=== PATIENT | male | born 1965 | race Two or more races ===

== ENCOUNTER 2018-08-10 17:58 | Inpatient (IN) | payer SELFPAY ==
[~2018-08-10] VITALS: Ht 170.2 cm; Wt 88.5 kg
[2018-08-10 19:24] LABS: INR 0.9 (0.9-1.15); Prothrombin Time 9.7 sec (9.27-12.13)
[2018-08-10 19:25] LABS: Basophils # (auto) 0 uL; Basophils % (auto) 0.3 % (0.0-2.0); Eosinophils # (auto) 0 uL; Eosinophils % (auto) 0.1 % (0.0-7.0); Hematocrit 35.2 % (41.0-53.0); Hemoglobin 12.1 g/dL (13.5-17.5); Lymphocytes # (auto) 0.6 uL; Lymphocytes % (auto) 4.5 % (10.0-50.0); Mean Corpuscular Hemoglobin 29.4 pg (28.0-32.0); Mean Corpuscular Hgb Conc. 34.5 g/dL (32.0-36.0); Mean Corpuscular Volume 85.2 fL (80.0-100.0); Monocytes # (auto) 1.3 uL; Neutrophils # (auto) 10.6 uL; Neutrophils % (auto) 85.1 % (37.0-80.0); Nucleated Red Blood Cells % 0.1 %; Platelet Count (auto) 195 10^3/uL (140-450); Red Blood Cells 4.13 10^6/uL (4.5-5.90); White Blood Cell 12.5 10^3/uL (4.4-10.8)
[2018-08-10 19:28] LABS: Albumin 1.7 g/dL (3.4-5.0); Calcium 7.3 mg/dL (8.5-10.1)
[2018-08-10 19:32] LABS: Acetaminophen < 2.0 ug/mL (10-30); Salicylate < 1.7 mg/dL (2.8-20.0)
[2018-08-10 19:57] LABS: BUN/Creatinine Ratio 17.7; Bilirubin, Total 0.4 mg/dL (0.2-1.0); Total Protein 6.4 g/dL (6.4-8.2)
[2018-08-10 20:04] LABS: Potassium 2.9 mmol/L (3.5-5.1)
[2018-08-10] MEDS ORDERED: POTASSIUM CHL 20 Meq TABLET PO ONE (20:15)
[2018-08-10] MEDS: POTASSIUM CHL 20MEQ/100ML 100 ML IV SCH ×2 (20:35→22:55)
[2018-08-11] MEDS ORDERED: LEVOFLOXACIN 500MG 100 ML IV ONE (02:30)
[2018-08-11] MEDS ORDERED: SODIUM CHLORIDE 0.9% 1,000 ML IV ONE (02:30)
[2018-08-11 02:31] LABS: Urine Amorphous Crystal FEW /hpf (None Seen); Urine Bacteria FEW /hpf (None Seen); Urine Blood 2+ /uL (Negative); Urine Hyaline Cast FEW /lpf (0 - 2); Urine WBC 4 /hpf (0 - 3)
[2018-08-11 02:49] LABS: Alcohol, Urine < 3.0 mg/dL (0-5); Amphetamine Screen, Urine NEGATIVE (NEGATIVE); Barbiturate Scree,Urine NEGATIVE (NEGATIVE); Benzodiazephine Screen, Urine NEGATIVE (NEGATIVE); Cannabinoid Screen, Urine NEGATIVE (NEGATIVE); Cocaine Screen, Urine NEGATIVE (NEGATIVE); Opiate Scree,Urine NEGATIVE (NEGATIVE); Phencyclidine Screen, Urine NEGATIVE (NEGATIVE)
[2018-08-11] MEDS ORDERED: SODIUM CHLORIDE 0.9% 1,000 ML IV SCH (02:58)
[2018-08-11] MEDS ORDERED: ONDANSETRON HCL 4 MG/2 ML VIAL IV PRN (03:00)
[2018-08-11] MEDS ORDERED: NITROGLYCERIN 0.4 MG SL TAB SL PRN (03:00)
[2018-08-11] MEDS ORDERED: MORPHINE SULFATE 4 MG/ML SYR/VIAL IV PRN (03:00)
[2018-08-11] MEDS ORDERED: HYDROcodone-ACET 5/325MG TAB PO PRN (03:00)
[2018-08-11] MEDS ORDERED: DEXTROSE (50%) 50ML SYRG IV PRN (04:15)
[2018-08-11] MEDS: SODIUM CHLORIDE 0.9% 1,000 ML IV SCH ×2 (05:01→15:31)
[2018-08-11] MEDS: PANTOPRAZOLE 40 MG TAB PO SCH (06:00)
[2018-08-11] MEDS: InsuLIN REG 1unit/0.01ml Soln (100units/ml) SC SCH ×3 (06:00→18:00)
[2018-08-11] MEDS: CLINDAMYCIN 600MG IV 50 ML IV SCH ×3 (06:01→21:49)
[2018-08-11] MEDS: ACCU-CHEK COMFORT CURVE STRIP VI SCH ×3 (06:02→18:22)
[2018-08-11] MEDS ORDERED: CLOPIDOGREL BISULFATE 75 MG TAB PO ONE (09:45)
[2018-08-11] MEDS ORDERED: ENOXAPARIN SOD 40 MG/0.4 ML SYRINGE SC SCH (10:00)
[2018-08-11] MEDS ORDERED: ATORVASTATIN 20 MG TAB PO ONE (10:15)
[2018-08-11] MEDS: ENOXAPARIN SOD 40 MG/0.4 ML SYRINGE SC SCH (10:30)
[2018-08-11 10:36] LABS: BUN/Creatinine Ratio 19.8; Calcium 7.1 mg/dL (8.5-10.1); Potassium 3.1 mmol/L (3.5-5.1)
[2018-08-11] MEDS ORDERED: hydrALAZINE HCL 20 MG/ML VL IV PRN (15:15)
[2018-08-11] MEDS ORDERED: ATORVASTATIN 20 MG TAB PO SCH (22:00)
[2018-08-11] MEDS: LEVOFLOXACIN 250MG 50 ML IV SCH (22:30)
[2018-08-12] MEDS: ACCU-CHEK COMFORT CURVE STRIP VI SCH ×4 (00:01→18:27)
[2018-08-12] MEDS: SODIUM CHLORIDE 0.9% 1,000 ML IV SCH ×3 (02:30→15:30)
[2018-08-12 05:46] LABS: Basophils # (auto) 0.1 uL; Basophils % (auto) 0.6 % (0.0-2.0); Eosinophils # (auto) 0.1 uL; Hematocrit 33.8 % (41.0-53.0); Hemoglobin 11.5 g/dL (13.5-17.5); Lymphocytes % (auto) 10.8 % (10.0-50.0); Mean Corpuscular Hemoglobin 29.3 pg (28.0-32.0); Mean Corpuscular Hgb Conc. 34.1 g/dL (32.0-36.0); Mean Corpuscular Volume 85.7 fL (80.0-100.0); Monocytes % (auto) 11.5 % (0.0-12.0); Neutrophils # (auto) 6.9 uL; Neutrophils % (auto) 76.1 % (37.0-80.0); Platelet Count (auto) 238 10^3/uL (140-450); Red Blood Cells 3.94 10^6/uL (4.5-5.90); Red Cell Distribution Width 13.3 % (11.8-14.3)
[2018-08-12] MEDS: InsuLIN REG 1unit/0.01ml Soln (100units/ml) SC SCH ×4 (06:00→18:00)
[2018-08-12 06:05] LABS: Albumin 1.4 g/dL (3.4-5.0); BUN/Creatinine Ratio 17.6; Calcium 6.9 mg/dL (8.5-10.1)
[2018-08-12 06:13] LABS: Bilirubin, Total 0.5 mg/dL (0.2-1.0); Total Protein 5.8 g/dL (6.4-8.2)
[2018-08-12 06:29] LABS: Magnesium 2.2 mg/dL (1.6-2.6)
[2018-08-12] MEDS: PANTOPRAZOLE 40 MG TAB PO SCH (06:30)
[2018-08-12] MEDS: CLINDAMYCIN 600MG IV 50 ML IV SCH ×3 (06:30→22:10)
[2018-08-12] MEDS: ASPirin-EC 325mg tab PO SCH (10:59)
[2018-08-12] MEDS: ENOXAPARIN SOD 40 MG/0.4 ML SYRINGE SC SCH (10:59)
[2018-08-12] MEDS ORDERED: POTASSIUM CHL 20 Meq TABLET PO ONE (13:15)
[2018-08-12] MEDS ORDERED: POTASSIUM EFFERVESENT TAB 25 MEQ PO ONE (13:30)
[2018-08-12] MEDS ORDERED: LISINOPRIL 20 MG TAB PO ONE (15:30)
[2018-08-12] MEDS ORDERED: FUROSEMIDE 20 MG/2 ML VIAL IV ONE (15:30)
[2018-08-12] MEDS ORDERED: SODIUM CHLORIDE 0.9% 1,000 ML IV SCH (15:30)
--- NOTE | 2018-08-12 15:52 | NUR ---
SWALLOW EVALUATED IN THE E.D. WITH FAMILY PRESENT. PATIENT ALOC, ABLE TO TOLERATE TRIAL OF PUREE DIET WITH THIN LIQUIDS WITH NO OVERT SIGNS OR SYMPTOMS OF ASPIRATION. PATIENT HAS TEETH. NURSING NOTIFIED.
[2018-08-12 16:00] VITALS: BP 156/96
--- NOTE | 2018-08-12 16:00 | NUR ---
Telemetry admit from ER SANJAY PIERRE admitted to Telemetry unit. Patient oriented to Minoo Gutierrez, primary RN, unit, room, bed, and unit policies regarding patient care and visiting hours. Patient now on continuous telemetry monitoring, tele box #32. Patient placed on bedside oxygen, weighed by bedscale. Safety precautions in place including, bed set to lowest position/locked. Bedside rails up X2. Bed alarm on, call light within reach. All questions and concerns addressed with family. Will continue to monitor Q 1hr and PRN.
--- NOTE | 2018-08-12 16:07 | NUR ---
Patient transport to floor on tele monitor on oliver fuentes, no s/s of distress noted at time of transport. Family at bedside, they are taking home all medications.
[2018-08-12 17:24] VITALS: BP 156/96
[2018-08-12] MEDS ORDERED: AML5T PO (19:41)
[2018-08-12] MEDS ORDERED: METF-370 PO (19:41)
[2018-08-12] MEDS ORDERED: FURO20TA PO (19:41)
--- NOTE | 2018-08-12 19:42 | NUR ---
ENDORSED CARE TO TAMERA MUNSON.
--- NOTE | 2018-08-12 19:43 | NUR ---
Opening Shift Note Assumed care of patient, awake and confuse, answering with yes all the questions. Son at bedside No S/S of distress/SOB or pain. Instructed on POC and to call for assist PRN, will continue to monitor for changes Q1hr and PRN.
[2018-08-12 22:00] VITALS: BP 169/98
[2018-08-12] MEDS: LEVOFLOXACIN 250MG 50 ML IV SCH (22:10)
[2018-08-12] MEDS: ATORVASTATIN 20 MG TAB PO SCH (22:14)
[2018-08-13 00:30] VITALS: BP 160/90
[2018-08-13 05:00] VITALS: BP 180/102
[2018-08-13] MEDS: hydrALAZINE HCL 20 MG/ML VL IV PRN (05:31)
[2018-08-13] MEDS: InsuLIN REG 1unit/0.01ml Soln (100units/ml) SC SCH ×4 (06:00→18:00)
[2018-08-13 06:06] LABS: Basophils # (auto) 0 uL; Basophils % (auto) 0.4 % (0.0-2.0); Eosinophils # (auto) 0.1 uL; Eosinophils % (auto) 1.1 % (0.0-7.0); Hematocrit 33.8 % (41.0-53.0); Hemoglobin 11.6 g/dL (13.5-17.5); Lymphocytes # (auto) 1.3 uL; Lymphocytes % (auto) 12.4 % (10.0-50.0); Mean Corpuscular Hemoglobin 29.4 pg (28.0-32.0); Mean Corpuscular Hgb Conc. 34.3 g/dL (32.0-36.0); Mean Corpuscular Volume 85.5 fL (80.0-100.0); Monocytes # (auto) 1.2 uL; Monocytes % (auto) 11.6 % (0.0-12.0); Neutrophils # (auto) 7.5 uL; Neutrophils % (auto) 74.5 % (37.0-80.0); Nucleated Red Blood Cells % 0.1 %; Platelet Count (auto) 284 10^3/uL (140-450); Red Blood Cells 3.96 10^6/uL (4.5-5.90); Red Cell Distribution Width 13.2 % (11.8-14.3); White Blood Cell 10.1 10^3/uL (4.4-10.8)
[2018-08-13 06:11] LABS: Calcium 7.2 mg/dL (8.5-10.1); Potassium 3.3 mmol/L (3.5-5.1)
[2018-08-13 06:14] LABS: BUN/Creatinine Ratio 17.6
[2018-08-13] MEDS: PANTOPRAZOLE 40 MG TAB PO SCH (06:32)
[2018-08-13] MEDS: CLINDAMYCIN 600MG IV 50 ML IV SCH ×3 (06:32→21:49)
[2018-08-13] MEDS: ACCU-CHEK COMFORT CURVE STRIP VI SCH ×4 (06:33→18:28)
--- NOTE | 2018-08-13 07:30 | NUR ---
OPENING NOTE ASSUMED CARE OF PT. PT IS LAYING ON BED, HOB HIGH-FOWLERS. PT RESPONSE TO ALL QUESTIONS WITH YES. PT IS ON 3 LPM/NC, O2 SATURATION 97%. NO SIGNS OF SOB/DISTRESS NOTED. PT ON TELE #32, HR 100. DALE INTACT, PATENT AND DRAINING YELLOW URINE. SAFETY PRECAUTIONS IN PLACE INCLUDING, BED SET TO LOWEST POSITION/LOCKED. BEDSIDE RAILS UP X2. BED ALARM ON. CALL LIGHT WITHIN REACH. DISCUSSED POC WITH SON. WILL CONTINUE TO MONITOR Q 1HR AND PRN.
[2018-08-13 08:30] VITALS: BP 146/70
[2018-08-13] MEDS: ASPirin-EC 325mg tab PO SCH (10:00)
[2018-08-13] MEDS: ENOXAPARIN SOD 40 MG/0.4 ML SYRINGE SC SCH (10:00)
[2018-08-13] MEDS ORDERED: POTASSIUM EFFERVESENT TAB 25 MEQ PO SCH (10:00)
[2018-08-13] MEDS: LISINOPRIL 20 MG TAB PO SCH (10:01)
[2018-08-13] MEDS ORDERED: POTASSIUM CHL 20 Meq TABLET PO ONE (11:15)
[2018-08-13] MEDS ORDERED: METOPROLOL TARTRATE 25 MG TAB PO ONE (11:15)
--- NOTE | 2018-08-13 11:15 | NUR ---
IV insertion IV access obtained, via clean sterile technique by inserting 20 gauge catheter at left wrist after 2 attempt(s). IV secured properly. No trauma to site. Patient tolerated well.
--- NOTE | 2018-08-13 11:20 | NUR ---
IV removal IV DC'd with clean sterile technique, catheter fully intact. Pressure dressing applied to site. Patient tolerated well.
[2018-08-13] MEDS: SODIUM CHLORIDE 0.9% 1,000 ML IV SCH (11:57)
[2018-08-13 12:16] VITALS: BP 150/90
[2018-08-13] MEDS: ACETAMINOPHEN 325 MG TAB PO PRN (14:05)
--- NOTE | 2018-08-13 15:28 | NUR ---
PT DECLINED P.T. TODAY. SON WAS PRESENT TO ENCOURAGE PATIENT.
[2018-08-13 17:29] VITALS: BP 134/82
--- NOTE | 2018-08-13 19:08 | NUR ---
ENDORSED CARE TO TAMERA MUNSON.
--- NOTE | 2018-08-13 19:10 | NUR ---
Opening Shift Note Assumed care of patient, awake and oriented to self. All questions will be answered with yes. No S/S of distress/SOB or pain. Instructed on POC and to call for assist PRN, will continue to monitor for changes Q1hr and PRN.
[2018-08-13 21:30] VITALS: BP 140/94
[2018-08-13] MEDS: ATORVASTATIN 20 MG TAB PO SCH (21:49)
[2018-08-13] MEDS: LEVOFLOXACIN 250MG 50 ML IV SCH (21:49)
[2018-08-13] MEDS: METOPROLOL TARTRATE 25 MG TAB PO SCH (22:00)
--- NOTE | 2018-08-14 00:30 | NUR ---
FULL BED BATH AND LINEN CHANGE
[2018-08-14] MEDS: hydrALAZINE HCL 20 MG/ML VL IV PRN ×2 (04:54→18:39)
[2018-08-14 05:00] VITALS: BP 174/99
[2018-08-14] MEDS: ACCU-CHEK COMFORT CURVE STRIP VI SCH ×4 (06:00→18:18)
[2018-08-14] MEDS: InsuLIN REG 1unit/0.01ml Soln (100units/ml) SC SCH ×4 (06:00→18:00)
[2018-08-14] MEDS: PANTOPRAZOLE 40 MG TAB PO SCH (06:20)
[2018-08-14] MEDS: CLINDAMYCIN 600MG IV 50 ML IV SCH ×3 (06:20→21:42)
[2018-08-14 06:31] LABS: BUN/Creatinine Ratio 18.1; Potassium 3.4 mmol/L (3.5-5.1)
--- NOTE | 2018-08-14 07:30 | NUR ---
OPENING NOTE ASSUMED CARE OF PT. PT IS LAYING ON BED, HOB HIGH-FOWLERS. PT RESPONSE TO ALL QUESTIONS WITH YES. PT IS ON 3 LPM/NC, O2 SATURATION 97%. NO SIGNS OF SOB/DISTRESS NOTED. PT ON TELE #32, HR 102. DALE INTACT, PATENT AND DRAINING YELLOW URINE. SAFETY PRECAUTIONS IN PLACE INCLUDING, BED SET TO LOWEST POSITION/LOCKED. BEDSIDE RAILS UP X2. BED ALARM ON.ASPIRATION PRECAUTION IN PLACE. CALL LIGHT WITHIN REACH. DISCUSSED POC WITH SON. WILL CONTINUE TO MONITOR Q 1HR AND PRN.
[2018-08-14 08:00] VITALS: BP 155/79
[2018-08-14] MEDS: ASPirin-EC 325mg tab PO SCH (10:01)
[2018-08-14] MEDS: LISINOPRIL 20 MG TAB PO SCH (10:01)
[2018-08-14] MEDS: METOPROLOL TARTRATE 25 MG TAB PO SCH ×2 (10:02→21:42)
[2018-08-14] MEDS: ENOXAPARIN SOD 40 MG/0.4 ML SYRINGE SC SCH (10:09)
[2018-08-14] MEDS: SODIUM CHLORIDE 0.9% 1,000 ML IV SCH (10:11)
--- NOTE | 2018-08-14 11:00 | NUR ---
WOUND CARE NOTE: DR. WARD IS REQUESTING SPECIALTY AIR MATTRESS FOR PATIENT. IN TO ASSESS PATIENT AT THIS TIME FOR SKIN INTEGRITY. PATIENT IS CURRENTLY UP IN CHAIR. PHYSICAL THERAPY IS WORKING WITH PATIENT. HE HAS HEMIPLEGIA OF RIGHT SIDE D/T CVA. HE HAS CURRENT SHARLENE SCORE OF 13. HE CAN ASSIST WITH HIS TURNING/REPOSITIONING, BUT IS MAX ASSIST FOR HIS ADL'S AT THIS POINT. WILL PLACE ORDER PER MD ORDER FOR [employer] AIR ELITE AIR MATTRESS. WOUND CARE TEAM WILL CONTINUE TO MONITOR.
[2018-08-14] MEDS ORDERED: HYDROcodone-ACET 5/325MG TAB PO PRN (11:15)
[2018-08-14] MEDS ORDERED: POTASSIUM CHL 20 Meq TABLET PO ONE (11:15)
[2018-08-14] MEDS ORDERED: FUROSEMIDE 20 MG/2 ML VIAL IV ONE (11:15)
--- NOTE | 2018-08-14 11:58 | NUR ---
Nutrition Assessment Notes please see attached link for complete assessment Est. Needs ABW [id number] kcal (23-25 kcal/kgBW), 65-82 gms pro (0.8-1.0 gms/kgBW d/t elev RFT CKD, severe hypoalbuminemia). Will continue to monitor pertinent labs and reassess nutrient need prn Addendum: 08/14/18 at [address] Amended: Links added.
[2018-08-14 12:00] VITALS: BP 129/82
--- NOTE | 2018-08-14 16:10 | NUR ---
SPOKE TO DR. WITT AT [facility] TO CONFIRM NEUROLOGY CONSULTATION. PER DR. WITT HE WILL NOT BE SEEING THE PATIENT. WILL INFORM THE DOCTOR.
--- NOTE | 2018-08-14 16:33 | NUR ---
PATIENT TEMPERATURE IS 99.1. COOLING MEASURES IN PLACE. WILL CONTINUE TO MONITOR.
[2018-08-14 16:46] VITALS: BP 164/100
--- NOTE | 2018-08-14 17:00 | NUR ---
REASSESSED TEMPERATURE 98.3.
--- NOTE | 2018-08-14 19:17 | NUR ---
ENDORSED CARE TO SEBASTIAN MUNSON.
--- NOTE | 2018-08-14 19:35 | NUR ---
Opening Shift Note Assumed care of patient. Family at bedside. No S/S of distress/SOB or pain. Instructed on POC and to call for assist PRN, will continue to monitor for changes Q1hr and PRN.
[2018-08-14] MEDS: LEVOFLOXACIN 250MG 50 ML IV SCH (21:30)
[2018-08-14] MEDS: ATORVASTATIN 20 MG TAB PO SCH (21:41)
[2018-08-14] MEDS: ACETAMINOPHEN 325 MG TAB PO PRN (21:41)
[2018-08-14 22:00] VITALS: BP 141/96
[2018-08-14 22:11] VITALS: BP 141/96
[2018-08-15] MEDS: ACCU-CHEK COMFORT CURVE STRIP VI SCH ×4 (00:22→18:00)
[2018-08-15 05:00] VITALS: BP 160/105
[2018-08-15] MEDS: CLINDAMYCIN 600MG IV 50 ML IV SCH ×3 (05:52→22:25)
[2018-08-15] MEDS: InsuLIN REG 1unit/0.01ml Soln (100units/ml) SC SCH ×4 (05:52→18:00)
[2018-08-15] MEDS: PANTOPRAZOLE 40 MG TAB PO SCH (05:52)
--- NOTE | 2018-08-15 06:15 | NUR ---
Elevated BP treated w/prn hydralazine 0500 BP 160/105. Reassessed at 0600 and 179/115. Treated w/20 mg of IV hydralazine. Will monitor.
[2018-08-15] MEDS: hydrALAZINE HCL 20 MG/ML VL IV PRN (06:19)
--- NOTE | 2018-08-15 07:06 | NUR ---
CARE ENDORSED TO DAY RN.
--- NOTE | 2018-08-15 07:20 | NUR ---
OPENING SHIFT NOTE ASSUMED CARE OF PATIENT FROM TRAINING AND DEVELOPMENT ASSISTANT RN SEBASTIAN. PATIENT IS ASLEEP, RESPIRATORY RATE 20 AND SPO2 96% ON 3L NC. PATIENT HAS NO S/S OF DISTRESS/SOB OR PAIN. WILL INSTRUCT PATIENT ON POC, BED IS IN LOWEST POSITION WITH SIDE RAILS RAISED X2, BED WHEELS LOCKED, DALE HANGING BELOW BLADDER. WILL CONTINUE TO MONITOR
[2018-08-15 08:00] VITALS: BP 139/84
[2018-08-15 09:00] VITALS: BP 139/84
[2018-08-15] MEDS: LISINOPRIL 20 MG TAB PO SCH (09:50)
[2018-08-15] MEDS: ASPirin-EC 325mg tab PO SCH (09:50)
[2018-08-15] MEDS: FUROSEMIDE 20 MG/2 ML VIAL IV SCH (09:50)
[2018-08-15] MEDS: ENOXAPARIN SOD 40 MG/0.4 ML SYRINGE SC SCH (09:51)
[2018-08-15] MEDS: METOPROLOL TARTRATE 25 MG TAB PO SCH ×2 (09:51→22:25)
[2018-08-15] MEDS ORDERED: LACTULOSE 20Gm/30ML SOLN PO PRN (12:00)
[2018-08-15 13:00] VITALS: BP 142/88
--- NOTE | 2018-08-15 14:00 | NUR ---
SPECIALTY MATTRESS DELIVERED. PATIENT IS SITTING IN CHAIR AT THIS TIME. NO S/S OF DISTRESS/SOB OR PAIN.
[2018-08-15 16:41] VITALS: BP 144/95
--- NOTE | 2018-08-15 19:24 | NUR ---
CLOSING SHIFT NOTE ENDORSED CARE TO LEARNING AND DEVELOPMENT OFFICER [facility]. PATIENT HAS NO S/S OF DISTRESS/SOB OR PAIN AT THIS TIME.
--- NOTE | 2018-08-15 20:34 | NUR ---
PATIENT MADE THREATS TO NURSE Put patient's tele back on after patient refused with CNC MAINTENANCE TECHNICIAN. Patient said he wanted to be left alone. Said, "Leave me the _ _ _ _ alone or you'll find yourself real surprised with what's gonna happen to you". Girlfriend at bedside asked if someone will look at his feet. I asked the patient if wanted me to look at his foot. Patient refused and again told me to leave his room. Patient was running sinus tach at 126 bpm. While composing this note patient removed tele again. Monitors showing that leads are currently off. This RN or any staff member will not be putting tele back on the patient. Tele box retrieved by RN accompanied by 2 other staff members. Leads still on patient. Telebox returned to GABINO. Will call hospitalist to d/c tele. Addendum: 08/16/18 at 0621 by SEBASTIAN HUNG RN WRONG PATIENT DISREGARD THIS NOTE
[2018-08-15 21:51] VITALS: BP 165/99
[2018-08-15] MEDS: ATORVASTATIN 20 MG TAB PO SCH (22:24)
[2018-08-15] MEDS: DOCUSATE SOD 100 MG CAP PO SCH (22:24)
[2018-08-15] MEDS: LEVOFLOXACIN 250MG 50 ML IV SCH (22:25)
--- NOTE | 2018-08-15 23:00 | NUR ---
IV insertion Additional IV access obtained, via clean sterile technique by inserting 22 gauge catheter at Right forearm. IV secured properly. No trauma to site. Patient tolerated well. NOTE:
[2018-08-16 05:00] VITALS: BP 158/88
[2018-08-16] MEDS: InsuLIN REG 1unit/0.01ml Soln (100units/ml) SC SCH ×4 (06:00→17:54)
[2018-08-16] MEDS: ACCU-CHEK COMFORT CURVE STRIP VI SCH ×4 (06:08→17:55)
[2018-08-16] MEDS: PANTOPRAZOLE 40 MG TAB PO SCH (06:08)
[2018-08-16] MEDS: CLINDAMYCIN 600MG IV 50 ML IV SCH (06:08)
[2018-08-16 06:17] LABS: Calcium 7.6 mg/dL (8.5-10.1); Potassium 3.6 mmol/L (3.5-5.1)
[2018-08-16 06:20] LABS: BUN/Creatinine Ratio 19.9
--- NOTE | 2018-08-16 06:21 | NUR ---
DISREGARD NOTE ON 08/15 AT 2033. WRONG PATIENT
--- NOTE | 2018-08-16 07:01 | NUR ---
Care endorsed to day RN. Patient resting in bed. No s/s of distress noted.
[2018-08-16 08:15] VITALS: BP 149/90
[2018-08-16 09:00] VITALS: BP 149/90
[2018-08-16] MEDS: LISINOPRIL 20 MG TAB PO SCH (10:00)
[2018-08-16] MEDS: ASPirin-EC 325mg tab PO SCH (10:00)
[2018-08-16] MEDS: DOCUSATE SOD 100 MG CAP PO SCH ×2 (10:01→22:25)
[2018-08-16] MEDS: FUROSEMIDE 20 MG/2 ML VIAL IV SCH (10:01)
[2018-08-16] MEDS: METOPROLOL TARTRATE 25 MG TAB PO SCH ×2 (10:01→22:25)
[2018-08-16] MEDS: ENOXAPARIN SOD 40 MG/0.4 ML SYRINGE SC SCH (10:01)
[2018-08-16] MEDS ORDERED: amLODIPine BESYLATE 5 MG TAB PO ONE ×2 (12:00→12:15)
--- NOTE | 2018-08-16 12:00 | NUR ---
SPOKE WITH MD WARD REGARDING NEW MED ORDERS FOR 1200. INFORMED HER AMLODIPINE WAS ORDERED TO BE GIVEN TWICE AND PATIENT BLOOD PRESSURE IS CURRENTLY 104//62 mmHg. PER DOCTOR 1200 MEDS CAN BE NON ADMINISTERED
[2018-08-16] MEDS ORDERED: ENOXAPARIN SOD 40 MG/0.4 ML SYRINGE SC ONE (12:15)
[2018-08-16] MEDS ORDERED: ASPirin-EC 325mg tab PO ONE (12:15)
[2018-08-16] MEDS ORDERED: DOCUSATE SOD 100 MG CAP PO ONE (12:15)
[2018-08-16 13:00] VITALS: BP 104/62
[2018-08-16 17:00] VITALS: BP 150/96
--- NOTE | 2018-08-16 17:01 | NUR ---
PATIENT WAS GIVEN A BED BATH WITH ASSISTANCE FROM VP [employer]. PATIENT TOLERATED WELL. NO S/S OF DISTRESS/SOB OR PAIN AT THIS TIME
[2018-08-16] MEDS: glipiZIDE 5 MG TAB PO SCH (17:52)
--- NOTE | 2018-08-16 19:12 | NUR ---
CLOSING SHIFT NOTE ENDORSED CARE TO COUPON MANIFEST CLERK [facility]. PATIENT HAS NO S/S OF DISTRESS/SOB OR PAIN AT THIS TIME.
[2018-08-16 22:07] VITALS: BP 159/98
[2018-08-16] MEDS: LEVOFLOXACIN 250MG 50 ML IV SCH (22:25)
[2018-08-16] MEDS: ATORVASTATIN 20 MG TAB PO SCH (22:25)
[2018-08-17] MEDS: hydrALAZINE HCL 20 MG/ML VL IV PRN (05:26)
[2018-08-17 05:45] VITALS: BP 168/102
[2018-08-17] MEDS: InsuLIN REG 1unit/0.01ml Soln (100units/ml) SC SCH ×4 (06:00→17:40)
[2018-08-17] MEDS: ACCU-CHEK COMFORT CURVE STRIP VI SCH ×4 (06:07→17:40)
[2018-08-17] MEDS: PANTOPRAZOLE 40 MG TAB PO SCH (06:07)
--- NOTE | 2018-08-17 07:06 | NUR ---
Care endorsed to
[2018-08-17 07:31] LABS: Calcium 7.7 mg/dL (8.5-10.1); Potassium 3.5 mmol/L (3.5-5.1)
[2018-08-17 07:32] LABS: BUN/Creatinine Ratio 22.6
--- NOTE | 2018-08-17 07:40 | NUR ---
Opening Shift Note Assumed care of patient, awake and alert to person. No S/S of distress/SOB or pain. Instructed on POC and to call for assist PRN, will continue to monitor for changes. Will continue to assist with turning at least q2 hrs. SCDs in place. Miner cath in place and draining light marysol urine. Edema noted to right hand, elevated on pillow. No noted BM, bowel sounds active x4quad, will continue to monitor and inform MD.
[2018-08-17] MEDS: glipiZIDE 5 MG TAB PO SCH ×2 (08:09→17:39)
[2018-08-17 09:00] VITALS: BP 131/85
[2018-08-17] MEDS ORDERED: ASPirin-EC 325mg tab PO SCH (10:00)
[2018-08-17] MEDS: ENOXAPARIN SOD 40 MG/0.4 ML SYRINGE SC SCH (10:19)
[2018-08-17] MEDS: amLODIPine BESYLATE 5 MG TAB PO SCH (10:20)
[2018-08-17] MEDS: DOCUSATE SOD 100 MG CAP PO SCH ×2 (10:20→22:39)
[2018-08-17] MEDS: METOPROLOL TARTRATE 25 MG TAB PO SCH ×2 (10:21→22:38)
[2018-08-17] MEDS: LISINOPRIL 20 MG TAB PO SCH (10:21)
[2018-08-17] MEDS ORDERED: LACTULOSE 20Gm/30ML SOLN PO ONE (11:30)
--- NOTE | 2018-08-17 12:15 | NUR ---
Left message for son Malachi to call back at [facility] as soon as possible. Will continue to monitor.
--- NOTE | 2018-08-17 12:29 | NUR ---
TELEPHONE CONSENT CHETAN Telephone consent obtained for CHETAN surgical and anesthesia consent, and blood consent. Consent obtained from sonMalachi. Second RN, Emilee witnessed and verified telephone consents. Will continue to monitor.
[2018-08-17 13:00] VITALS: BP 100/58
--- NOTE | 2018-08-17 13:10 | NUR ---
Patient transferred via gurney to hot plate plywood press laborer, patient care and report handed off to Lidia MUNSON. No s/s of distress noted.
[2018-08-17] MEDS ORDERED: MIDAZOLAM HCL 1MG/1ML-2 ML VIAL IV ONE ×2 (13:15)
[2018-08-17] MEDS ORDERED: NALOXONE HCL 0.4 MG/ML VIAL IV ONE (13:15)
[2018-08-17] MEDS ORDERED: fentaNYL CITRATE 100 MCG/2 ML VL IV ONE (13:15)
[2018-08-17] MEDS ORDERED: FLUMAZENIL 0.1 MG/ML INJ 10ML MDV IV ONE ×3 (13:15→13:29)
[2018-08-17] MEDS ORDERED: MIDAZOLAM HCL 1MG/1ML-2 ML VIAL ONE (13:29)
[2018-08-17] MEDS ORDERED: IODIXANOL 320MG/ML 100ML BTL IV ONE (13:35)
--- NOTE | 2018-08-17 14:35 | NUR ---
Patient returned from [facility]. No s/s of distress noted, VS 143/90, 86, 17, 100% on 2 L/min, and 98.2F. Will continue to monitor.
[2018-08-17 16:50] VITALS: BP 143/94
--- NOTE | 2018-08-17 19:21 | NUR ---
Patient care and report handed off to Alyssa MUNSON.
--- NOTE | 2018-08-17 19:50 | NUR ---
Opening Shift Note Assumed care of patient, awake and alert x1, answers yes to all questions. No S/S of distress/SOB or pain. Instructed on POC, will continue to monitor for changes Q1hr and PRN, bed alarm on.
[2018-08-17 20:00] VITALS: BP 158/102
--- NOTE | 2018-08-17 20:35 | NUR ---
Family Son Malachi called for information, password verified, updated on poc and patient status. Patient awake and alert x1. No S/S of distress/SOB or pain. Will continue to monitor changes q1hr and PRN.
[2018-08-17 22:00] VITALS: BP 158/102
[2018-08-17] MEDS: ATORVASTATIN 20 MG TAB PO SCH (22:39)
[2018-08-18] VITALS (7 sets, daily range): BP systolic 131–146; BP diastolic 77–95
[2018-08-18] MEDS: ACCU-CHEK COMFORT CURVE STRIP VI SCH ×5 (00:17→23:52)
--- NOTE | 2018-08-18 02:15 | NUR ---
Bowel Movement Patient awake and alert x1. Pt had a bowel movement at this time. Bed bath to be given. No S/S of distress/SOB or pain. Will continue to monitor changes q1hr and PRN.
--- NOTE | 2018-08-18 02:20 | NUR ---
Gave patient a full bed bath and linen change.
[2018-08-18] MEDS: PANTOPRAZOLE 40 MG TAB PO SCH (05:37)
[2018-08-18] MEDS: glipiZIDE 5 MG TAB PO SCH ×2 (05:37→17:56)
[2018-08-18] MEDS: InsuLIN REG 1unit/0.01ml Soln (100units/ml) SC SCH ×5 (05:42→23:52)
[2018-08-18 06:04] LABS: BUN/Creatinine Ratio 20.5; Calcium 7.5 mg/dL (8.5-10.1); Potassium 3.5 mmol/L (3.5-5.1)
[2018-08-18] MEDS: ASPirin 81 mg TAB PO SCH (10:41)
[2018-08-18] MEDS: DOCUSATE SOD 100 MG CAP PO SCH ×2 (10:41→22:02)
[2018-08-18] MEDS: FUROSEMIDE 40 MG TAB PO SCH (10:42)
[2018-08-18] MEDS: amLODIPine BESYLATE 5 MG TAB PO SCH (10:43)
[2018-08-18] MEDS: METOPROLOL TARTRATE 25 MG TAB PO SCH ×2 (10:43→22:03)
[2018-08-18] MEDS: LISINOPRIL 20 MG TAB PO SCH (10:43)
[2018-08-18] MEDS: ENOXAPARIN SOD 40 MG/0.4 ML SYRINGE SC SCH (10:44)
--- NOTE | 2018-08-18 15:38 | NUR ---
Nutrition Follow-up Notes Wt.: 97.4 kg as of yesterday. Pt's on oxygen via nasal cannula, asleep, no immediate family member at bedside during rounds this morning. Pt's no signs of distress noted earlier, currently on Pureed Consistent Std. Carb: 60 gms/meal diet with adequate PO intake aeb 88% ave. consumed meals (x5) in last 2.5 days. Noted pt's for active Cardiology consult. Est. Needs ABW [id number] kcal (23-25 kcal/kgBW), 65-82 gms pro (0.8-1.0 gms/kgBW d/t elev RFT CKD, severe hypoalbuminemia). Will continue to monitor pertinent labs and reassess nutrient need prn Labs: Gluc 144 H, Cl 118 H, BUN 31 H, Cr 1.51 H, Ca 7.5 L; HbA1c 10.4 H, ALB 1.4 L Skin: Brennen scale 14, mod risk, skin intact per digital associate media director. GI: Pt had 1 BM this morning per digital associate media director. PES: Altered nutrition related lab values r/t current/chronic medical condition aeb elev RFT A1C, hyperglycemia, severe hypoalb, hypocalcemia Obesity r/t food intake more than body requirement aeb 144% IBW, BMI 33.6 kg/m2 and increased body adiposity Will continue to monitor PO intake, skin status, pertinent labs and weight trend. F/u in to days. Rec.: 1.) If renal labs continue trending up, consider Pureed Renal Specific 80 gm protein, 2 gms Na, Cardiac: Low Fat, Low Chol in addition to current therapeutic diet. 2.) Continue close supervision during meals. 3.) If Albumin level continues trending down with improved renal labs, consider Prostat 1 pkt BID. 4.) Refer pt to CDE/RD for further nutrition education and weight monitoring upon discharge. 5.) Continue current plan of care.
--- NOTE | 2018-08-18 15:47 | NUR ---
Russell catheter dc'd Order to discontinue russell catheter. Russell dc'd with clean technique following deflation of 7ml from balloon. Patient tolerated well with no complaints of pain. Continue care. 250ML OF CLOUDY, LIGHT MAIRA COLORED URINE EMPTIED FROM BAG.
--- NOTE | 2018-08-18 16:38 | NUR ---
assessment Per consult discharge planning, needs insurance. Albino Siddiqui of [facility] is working with patient on medi-tino Addendum: 08/18/18 at 1639 by Marielle Maciel Amended: Links added.
--- NOTE | 2018-08-18 20:00 | NUR ---
Opening Shift Note Assumed care of patient sleeping respirations even and unlabored.. No S/S of distress/SOB or pain. Will continue to monitor for changes Q1hr and PRN.
[2018-08-18] MEDS: ATORVASTATIN 20 MG TAB PO SCH (22:02)
--- NOTE | 2018-08-19 04:00 | NUR ---
Rounds Patient awake and alert x1, only answers yes, cooperative. Pt repositioned at this time with aide. No S/S of distress/SOB or pain. Will continue to monitor changes q1hr and PRN.
[2018-08-19 05:00] VITALS: BP 137/79
[2018-08-19] MEDS: InsuLIN REG 1unit/0.01ml Soln (100units/ml) SC SCH ×3 (06:00→18:20)
[2018-08-19] MEDS: ACCU-CHEK COMFORT CURVE STRIP VI SCH ×3 (06:00→18:20)
--- NOTE | 2018-08-19 06:00 | NUR ---
Rounds Patient awake and alert x1. No S/S of distress/SOB on 2L NC, or pain. Patient repositioned every 2 hrs throughout shift, Optifoam for preventive measure on sacrum, repositioned at this time with aide. Pt on SCD machine and air mattress. Will continue to monitor changes q1hr and PRN.
[2018-08-19] MEDS: PANTOPRAZOLE 40 MG TAB PO SCH (06:46)
[2018-08-19] MEDS: glipiZIDE 5 MG TAB PO SCH ×2 (06:46→18:20)
--- NOTE | 2018-08-19 07:15 | NUR ---
Opening Shift Note Report received and assumed care of patient, sleeping. No S/S of distress/SOB or pain. Instructed on plan of care and nursing routines.Will continue to monitor for changes Q1hr and PRN.
[2018-08-19 09:00] VITALS: BP 125/81
--- NOTE | 2018-08-19 09:00 | NUR ---
PHYSICAL THERAPY AT BEDSIDE,ASSISTED PATIENT TO CHAIR,PATIENT REMAIN IN CHAIR AT THIS TIME .
[2018-08-19] MEDS: METOPROLOL TARTRATE 25 MG TAB PO SCH ×2 (10:29→22:25)
[2018-08-19] MEDS: ASPirin 81 mg TAB PO SCH (10:29)
[2018-08-19] MEDS: DOCUSATE SOD 100 MG CAP PO SCH ×2 (10:29→22:24)
[2018-08-19] MEDS: FUROSEMIDE 40 MG TAB PO SCH (10:29)
[2018-08-19] MEDS: LISINOPRIL 20 MG TAB PO SCH (10:30)
[2018-08-19] MEDS: ENOXAPARIN SOD 40 MG/0.4 ML SYRINGE SC SCH (10:30)
[2018-08-19] MEDS: amLODIPine BESYLATE 5 MG TAB PO SCH (10:30)
--- NOTE | 2018-08-19 11:50 | NUR ---
PATIENT ASSISTED BACK TO BED BY PHYSICAL THERAPY,TOLERATED BEING UP IN CHAIR FOR ALMOST 3 HOURS.
[2018-08-19 13:00] VITALS: BP 138/78
--- NOTE | 2018-08-19 13:00 | NUR ---
CARE ASSUMED FROM CHANDU. RECEIVED REPORT. THE PATIENT IS STABLE AND NOT EXPERIENCING ANY SIGNS OF DISTRESS OR PAIN. WILL CONTINUE TO ROUND ON PATIENT.
--- NOTE | 2018-08-19 13:15 | NUR ---
REPORT GIVEN TO FABY FOR CONTINUATION OF CARE.
[2018-08-19 17:00] VITALS: BP 145/87
--- NOTE | 2018-08-19 19:18 | NUR ---
Opening Shift Note Assumed care of patient, awake and alert x 1-2. No S/S of distress/SOB or pain.Specialty mattress on bed. Bed itself is in lowest position and locked. Call light within reach. Board updated. Tele box number matches monitor and leads are in correct placement. Instructed on POC and to call for assist PRN, will continue to monitor for changes Q1hr and PRN.
[2018-08-19 22:00] VITALS: BP 160/98
[2018-08-19] MEDS: ATORVASTATIN 20 MG TAB PO SCH (22:24)
[2018-08-20] MEDS: ACCU-CHEK COMFORT CURVE STRIP VI SCH ×5 (00:02→23:47)
--- NOTE | 2018-08-20 00:05 | NUR ---
Cuca hospitalist because patient's blood pressure continues to be elevated despite administering Lopressor 25 mg PO. Patient's blood pressure is currently 161/100 with an MAP of 120 and pulse of 93. Patient recently had a CVA to the left MCA and STAFFING ACCOUNT MANAGER but his blood pressure has recently been trending in the 130s systolic and 70s-80s diastolic.
[2018-08-20] MEDS: cloNIDine HCL 0.1 MG TAB PO PRN (01:22)
[2018-08-20 05:00] VITALS: BP 150/98
[2018-08-20] MEDS: PANTOPRAZOLE 40 MG TAB PO SCH (06:07)
[2018-08-20] MEDS: glipiZIDE 5 MG TAB PO SCH ×2 (06:07→18:01)
[2018-08-20] MEDS: InsuLIN REG 1unit/0.01ml Soln (100units/ml) SC SCH ×5 (06:08→23:47)
--- NOTE | 2018-08-20 07:15 | NUR ---
Opening Shift Note Report received and assumed care of patient, sleeping.easily arousable, No S/S of distress/SOB or pain. Instructed on plan of care and nursing routines.Will continue to monitor for changes Q1hr and PRN.
[2018-08-20 08:27] VITALS: BP 124/80
--- NOTE | 2018-08-20 10:00 | NUR ---
REMAINS IN BED NO DISTRESS NO DISCOMFORT FOLLOW INSTRUCTION BUT ANSWER "YES" OR "NO" ONLY AND REPEATS AND COPY WORDS AT TIMES.
[2018-08-20] MEDS: ENOXAPARIN SOD 40 MG/0.4 ML SYRINGE SC SCH (10:07)
[2018-08-20] MEDS: METOPROLOL TARTRATE 25 MG TAB PO SCH ×2 (10:08→22:32)
[2018-08-20] MEDS: DOCUSATE SOD 100 MG CAP PO SCH ×2 (10:08→22:31)
[2018-08-20] MEDS: LISINOPRIL 20 MG TAB PO SCH (10:09)
[2018-08-20] MEDS: FUROSEMIDE 40 MG TAB PO SCH (10:09)
[2018-08-20] MEDS: ASPirin 81 mg TAB PO SCH (10:09)
[2018-08-20] MEDS: amLODIPine BESYLATE 5 MG TAB PO SCH (10:09)
[2018-08-20 12:11] VITALS: BP 147/88
[2018-08-20 16:29] VITALS: BP 139/85
--- NOTE | 2018-08-20 17:30 | NUR ---
FAMILY AT BEDSIDE VISITING
[2018-08-20 22:00] VITALS: BP 154/93
[2018-08-20] MEDS: ATORVASTATIN 20 MG TAB PO SCH (22:31)
--- NOTE | 2018-08-20 23:56 | NUR ---
Paging hospitalist for urinary retention. Patient, who is incontinent usually every 90 minutes following admission for left sided CVA, had not urinated in at least 5 hours. Bladder scan revealed 914 mls of urine in bladder. Patient had a Miner catheter until 08/18 when it was discontinued.
--- NOTE | 2018-08-21 00:24 | NUR ---
Miner catheter insertion Patient assessed and determined to be in need of Miner catheter based off acute urinary retention. Order obtained from TARSHA Doherty. Patient educated on catheter and reason for insertion though patient is not completely alert and oriented. Miner catheter 14 guage Afghan inserted with clean sterile technique. Patient tolerated well. 900 mls of light marysol urine removed from bladder immediately following insertion. Will continue to monitor.
[2018-08-21 05:00] VITALS: BP 144/94
[2018-08-21] MEDS: InsuLIN REG 1unit/0.01ml Soln (100units/ml) SC SCH ×3 (05:51→18:16)
[2018-08-21] MEDS: glipiZIDE 5 MG TAB PO SCH ×2 (05:52→18:15)
[2018-08-21] MEDS: PANTOPRAZOLE 40 MG TAB PO SCH (05:52)
[2018-08-21] MEDS: ACCU-CHEK COMFORT CURVE STRIP VI SCH ×3 (05:52→18:20)
--- NOTE | 2018-08-21 07:15 | NUR ---
Opening Shift Note Report received and assumed care of patient ,awake alert, No S/S of distress/SOB or pain. Instructed on plan of care and nursing routines.instructed to call for assistance,call light within reach.Will continue to monitor for changes Q1hr and PRN.
[2018-08-21 08:44] VITALS: BP 162/88
--- NOTE | 2018-08-21 09:30 | NUR ---
PHYSICAL THERAPY AT BEDSIDE RANGE OF MOTION EXERCISES DONE THEN ASSISTED PATIENT OOB TO BEDSIDE CHAIR WITH MAXIMUM ASSIST
[2018-08-21] MEDS: ENOXAPARIN SOD 40 MG/0.4 ML SYRINGE SC SCH (10:37)
[2018-08-21] MEDS: amLODIPine BESYLATE 5 MG TAB PO SCH (10:38)
[2018-08-21] MEDS: METOPROLOL TARTRATE 25 MG TAB PO SCH ×2 (10:39→22:02)
[2018-08-21] MEDS: CLOPIDOGREL BISULFATE 75 MG TAB PO SCH (10:39)
[2018-08-21] MEDS: FUROSEMIDE 40 MG TAB PO SCH (10:39)
[2018-08-21] MEDS: ASPirin 81 mg TAB PO SCH (10:39)
[2018-08-21] MEDS: DOCUSATE SOD 100 MG CAP PO SCH ×2 (10:39→21:59)
[2018-08-21] MEDS: LISINOPRIL 20 MG TAB PO SCH (10:40)
--- NOTE | 2018-08-21 10:45 | NUR ---
PATIENT VOMITTED UNDIGESTED.
[2018-08-21 12:09] VITALS: BP 97/70
--- NOTE | 2018-08-21 12:10 | NUR ---
MD VISIT DR. NEIL HERE TO SEE AND EXAMINED PATIENT,INFORMED OF PATIENT VOMITING,AWARE OF PATIENT LOW BP 97/70,RECEIVED INSTRUCTION TO MONITOR PATIENT BP
[2018-08-21] MEDS ORDERED: CITALOPRAM HYDROBR 20 MG TAB PO ONE (12:30)
--- NOTE | 2018-08-21 13:30 | NUR ---
PATIENT BACK TO BED ASSISTED BY PHYSICAL THERAPY
--- NOTE | 2018-08-21 13:46 | NUR ---
WOUND CARE NOTE: Wound care in to see for skin integrity monitoring. Patient continue resting on air mattress in Rm. 223A. Patient is awake and appears to be in no pain utilizing Mayer Noriega Faces pain Scale. He needs assistance in turning and repositioning and his current Brennen score is 12. Patient remain wound free, no non-blanchable redness over bony prominences. Patient tolerated well. Bed in lowest position with all safety precautions in placed. RECOMMENDATION: Continuation of all wound care orders prescribed by MD, continue with skin/wound preventative plan of care, continue monitoring by wound care while patient is hospitalized
[2018-08-21 15:00] VITALS: BP 137/92
--- NOTE | 2018-08-21 18:25 | NUR ---
Open Note Received report on patient from Lexus, awake and sitting up in bed. Patient shows no signs of distress at this time. Bed in lowest locked position, side rails up x2, and call light within reach. Will continue to monitor.
--- NOTE | 2018-08-21 18:26 | NUR ---
REPORT AND CONTINUATION OF CARE GIVEN TO JOANNA MUNSON Addendum: 08/21/18 at 1828 by Juany Armando RN RN [facility] (NOT JACOB)
--- NOTE | 2018-08-21 18:57 | NUR ---
End of Shift Endorsed care to NOC nurse Temi. Patient shows no signs of distress at this time. Bed in lowest locked position, side rails up x2, and call light within reach.
--- NOTE | 2018-08-21 19:40 | NUR ---
Opening Shift Note Report received and assumed care of patient, awake and alert. Patient able to verbalize "ok" and "no," responds appropriately to direct questions and instructions. No S/S of distress/SOB or pain. Instructed on plan of care. Bed in lowest locked position, side rails up x2, and call light within reach. Patient noted to be on specialty mattress, tolerating well. Will continue to monitor for changes Q1hr and PRN.
[2018-08-21 22:00] VITALS: BP 145/86
[2018-08-21] MEDS: ATORVASTATIN 20 MG TAB PO SCH (22:00)
[2018-08-22 05:00] VITALS: BP 154/100
[2018-08-22] MEDS: InsuLIN REG 1unit/0.01ml Soln (100units/ml) SC SCH ×5 (06:00→23:59)
[2018-08-22] MEDS: ACCU-CHEK COMFORT CURVE STRIP VI SCH ×5 (06:00→23:58)
[2018-08-22] MEDS: PANTOPRAZOLE 40 MG TAB PO SCH (07:05)
[2018-08-22] MEDS: glipiZIDE 5 MG TAB PO SCH ×2 (07:05→18:47)
--- NOTE | 2018-08-22 07:15 | NUR ---
Open Shift Note Received report on patient, awake and sitting up in bed. Patient states pain 05/01. Discussed pain management as well as POC with patient. Bed in lowest locked position, side rails up x2, and call light within reach. Will continue to monitor. Addendum: 08/22/18 at 0836 by KHURRAM ROBIN RN RN Wrong patient.
--- NOTE | 2018-08-22 07:15 | NUR ---
Open Shift Note Received report on patient, awake and sitting up in bed. Patient shows no signs of distress at this time. Patient able to give "Yes/No" responses. Discussed POC with patient. Bed in lowest locked position, side rails up x2, and call light within reach. Aspiration precautions in place. Will continue to monitor.
--- NOTE | 2018-08-22 07:45 | NUR ---
End of Shift Endorsed care to dayshift [facility]. Patient shows no signs of distress at this time. Bed in lowest locked position, side rails up x2, and call light within reach.
[2018-08-22 09:00] VITALS: BP 155/101
[2018-08-22] MEDS: DOCUSATE SOD 100 MG CAP PO SCH ×2 (09:26→22:00)
[2018-08-22] MEDS: ASPirin 81 mg TAB PO SCH (09:27)
[2018-08-22] MEDS: FUROSEMIDE 40 MG TAB PO SCH (09:27)
[2018-08-22] MEDS: CLOPIDOGREL BISULFATE 75 MG TAB PO SCH (09:27)
[2018-08-22] MEDS: CITALOPRAM HYDROBR 20 MG TAB PO SCH (09:27)
[2018-08-22] MEDS: METOPROLOL TARTRATE 25 MG TAB PO SCH ×2 (09:28→22:00)
[2018-08-22] MEDS: LISINOPRIL 20 MG TAB PO SCH (09:28)
[2018-08-22] MEDS: ENOXAPARIN SOD 40 MG/0.4 ML SYRINGE SC SCH (09:29)
[2018-08-22] MEDS: amLODIPine BESYLATE 5 MG TAB PO SCH (09:29)
--- NOTE | 2018-08-22 09:50 | NUR ---
Physical Therapy at Bedside Physical therapy at patient bedside.
--- NOTE | 2018-08-22 10:40 | NUR ---
Pt Sitting Up in Chair Patient is sitting up in chair. Tolerating well, no distress noted.
[2018-08-22 13:00] VITALS: BP 158/99
[2018-08-22 17:00] VITALS: BP 138/85
--- NOTE | 2018-08-22 19:29 | NUR ---
End of Shift Endorsed care to [facility] nurseWes. Patient shows no signs of distress at this time. Bed in lowest locked position, side rails up x2, and call light within reach.
[2018-08-22 22:00] VITALS: BP 138/81
[2018-08-22] MEDS: ATORVASTATIN 20 MG TAB PO SCH (22:00)
[2018-08-23 05:11] VITALS: BP 137/85
[2018-08-23] MEDS: ACCU-CHEK COMFORT CURVE STRIP VI SCH ×3 (05:24→17:49)
[2018-08-23] MEDS: InsuLIN REG 1unit/0.01ml Soln (100units/ml) SC SCH ×3 (05:24→17:49)
[2018-08-23] MEDS: PANTOPRAZOLE 40 MG TAB PO SCH (06:27)
[2018-08-23] MEDS: glipiZIDE 5 MG TAB PO SCH ×2 (06:27→18:24)
--- NOTE | 2018-08-23 06:46 | NUR ---
Shift Note The patient had an uneventful night, tolerated treatments well, had no complaints. The patient continues to have expressive aphasia but was able to communicate well enough for the staff to understand. Good strength to the left side but flaccid on the right. Will continue to monitor.
--- NOTE | 2018-08-23 08:15 | NUR ---
Opening Shift Note Assumed care of patient, awake and alert. No S/S of distress/SOB or pain. Instructed on POC and to call for assist PRN, will continue to monitor for changes. Will continue to assist with turning at least q2 hrs and SCDs currently in place. Miner cath in place and draining yellow urine.
[2018-08-23 08:57] VITALS: BP 145/94
--- NOTE | 2018-08-23 09:00 | NUR ---
IV insertion IV access obtained, via clean sterile technique by inserting 22 gauge catheter at RFA after 1 attempt(s). IV secured properly. No trauma to site. Patient tolerated well. NOTE: IV removal IVs DC'd with clean sterile technique, catheter fully intact. Pressure dressing applied to site. Patient tolerated well. NOTE:
[2018-08-23] MEDS: CITALOPRAM HYDROBR 20 MG TAB PO SCH (10:04)
[2018-08-23] MEDS: CLOPIDOGREL BISULFATE 75 MG TAB PO SCH (10:04)
[2018-08-23] MEDS: amLODIPine BESYLATE 5 MG TAB PO SCH (10:04)
[2018-08-23] MEDS: ASPirin 81 mg TAB PO SCH (10:05)
[2018-08-23] MEDS: DOCUSATE SOD 100 MG CAP PO SCH ×2 (10:05→22:00)
[2018-08-23] MEDS: FUROSEMIDE 40 MG TAB PO SCH (10:06)
[2018-08-23] MEDS: METOPROLOL TARTRATE 25 MG TAB PO SCH ×2 (10:06→22:56)
[2018-08-23] MEDS: LISINOPRIL 20 MG TAB PO SCH (10:07)
[2018-08-23] MEDS: ENOXAPARIN SOD 40 MG/0.4 ML SYRINGE SC SCH (10:08)
--- NOTE | 2018-08-23 10:57 | NUR ---
REGARDING RUSSELL Per Dr Cazares patient to be bladder trained and may remove russell cath. Will continue to monitor.
--- NOTE | 2018-08-23 12:00 | NUR ---
Bladder training initiated. Will continue to monitor.
--- NOTE | 2018-08-23 12:09 | NUR ---
Nutrition Follow-up Notes Wt.: 96.1 kg Pt's on oxygen via nasal cannula aphasic, no immediate family member at bedside during rounds this morning. Pt's no signs of distress noted earlier, currently on Pureed Consistent Std. Carb: 60 gms/meal diet with adequate PO of > 75% x 5 per RN doc Est. Needs ABW [id number] kcal (23-25 kcal/kgBW), 65-82 gms pro (0.8-1.0 gms/kgBW d/t elev RFT CKD, severe hypoalbuminemia). Will continue to monitor pertinent labs and reassess nutrient need prn Labs: No new labs today 08/18: Gluc 144 H, Cl 118 H, BUN 31 H, Cr 1.51 H, Ca 7.5 L; HbA1c 10.4 H, ALB 1.4 L Skin: Brennen scale 17, mod risk, skin intact per ciaio lumite injector. GI: Pt had 1 BM this morning per ciaio lumite injector. PES: Altered nutrition related lab values r/t current/chronic medical condition aeb elev RFT A1C, hyperglycemia, severe hypoalb, hypocalcemia Obesity r/t food intake more than body requirement aeb 144% IBW, BMI 33.6 kg/m2 and increased body adiposity Will continue to monitor PO intake, skin status, pertinent labs and weight trend. F/u in to days. Rec.: 1.) If renal labs continue trending up, consider Pureed Renal Specific 80 gm protein, 2 gms Na, Cardiac: Low Fat, Low Chol in addition to current therapeutic diet. 2.) Continue close supervision during meals. 3.) If Albumin level continues trending down with improved renal labs, consider Prostat 1 pkt BID. 4.) Refer pt to CDE/RD for further nutrition education and weight monitoring upon discharge. 5.) Continue current plan of care.
[2018-08-23] MEDS ORDERED: HYDROcodone-ACET 5/325MG TAB PO PRN (12:15)
[2018-08-23 13:04] VITALS: BP 135/84
[2018-08-23 17:01] VITALS: BP 142/89
--- NOTE | 2018-08-23 19:04 | NUR ---
Patient care and report handed off to Wes MUNSON. Made aware that patient has been bladder trained throughout the shift and russell cath may be removed per Dr Cazares.
[2018-08-23 21:27] VITALS: BP 143/78
[2018-08-23] MEDS: ATORVASTATIN 20 MG TAB PO SCH (22:55)
[2018-08-24 05:00] VITALS: BP 158/89
[2018-08-24] MEDS: InsuLIN REG 1unit/0.01ml Soln (100units/ml) SC SCH ×5 (06:00→23:52)
[2018-08-24] MEDS: ACCU-CHEK COMFORT CURVE STRIP VI SCH ×5 (06:12→23:53)
[2018-08-24] MEDS: glipiZIDE 5 MG TAB PO SCH ×2 (06:13→18:13)
[2018-08-24] MEDS: PANTOPRAZOLE 40 MG TAB PO SCH (06:13)
[2018-08-24 06:15] LABS: Calcium 8.1 mg/dL (8.5-10.1); Potassium 4.2 mmol/L (3.5-5.1)
--- NOTE | 2018-08-24 06:19 | NUR ---
Shift Note The patient had an uneventful night tolerated treatments well, no complaints. The patient is being prepared for discharge, russell was ordered to be removed after bladder training. Russell was removed at 0530hrs so the patient is due to void at 1130hrs today. Placed a pad under the patient and up over the penis to be able to see if he does urinate. I also gave him a urinal and asked him to urinate if he could into it so I can see he actually urinated. Also explained he needs to void by 1130hrs or he will get another catheter. The patient stated he understood.
--- NOTE | 2018-08-24 07:40 | NUR ---
Opening Shift Note Assumed care of patient, awake and alert, can answer with yes or no, has difficult time talking. No S/S of distress/SOB or pain. Instructed on POC and to call for assist PRN, will continue to monitor for changes Q1hr and PRN.
[2018-08-24 09:00] VITALS: BP 143/97
--- NOTE | 2018-08-24 10:20 | NUR ---
Report Received report received from orestes MUNSON. patient currently sleeping quietly in bed in supine position. patient is on 2 L NC with even and unlabored respirations. no s/s of distress/sob or pain at this time. will continue to monitor q1h and prn.
[2018-08-24] MEDS: ENOXAPARIN SOD 40 MG/0.4 ML SYRINGE SC SCH (11:52)
[2018-08-24] MEDS: CITALOPRAM HYDROBR 20 MG TAB PO SCH (11:53)
[2018-08-24] MEDS: DOCUSATE SOD 100 MG CAP PO SCH ×2 (11:53→21:53)
[2018-08-24] MEDS: ASPirin 81 mg TAB PO SCH (11:53)
[2018-08-24] MEDS: METOPROLOL TARTRATE 25 MG TAB PO SCH ×2 (11:54→21:54)
[2018-08-24] MEDS: LISINOPRIL 20 MG TAB PO SCH (11:54)
[2018-08-24] MEDS: FUROSEMIDE 40 MG TAB PO SCH (11:54)
[2018-08-24] MEDS: amLODIPine BESYLATE 5 MG TAB PO SCH (11:55)
--- NOTE | 2018-08-24 12:30 | NUR ---
PATIENT HAS YET TO VOID SINCE THIS AM AND ONLY ONE VOID SINCE REMOVING DALE. NO BLADER DISTENTION PRESENT AT THIS TIME. PATIENT DENIES PAIN. WILL PAGED DR. WARD.
[2018-08-24 13:00] VITALS: BP 142/92
--- NOTE | 2018-08-24 14:20 | NUR ---
SPOKE WITH DR. WARD SPOKE WITH DR CAZARES: PATIENT CONDITION. DALE WAS REMOVED THIS MORNING AND PATIENT HAS NOT VOIDED SINCE THIS AM. INFORMED THAT PATIENT IS NOT DRINKING OR EATING A LOT REFUSED HIS BREAKFAST. PER DR. WARD START NS AT 50 ML/HR TO SEE IF WILL HELP PATIENT VOID. IF PATIENT DOES NOT VOID WITHIN 4 HRS, PERFORM A BLADDER SCAN. IF VOLUME IS MORE THAN 250 ML, PLACE ANOTHER DALE. ORDERS CARRIED OUT IN [facility], WILL CONTINUE TO MONITOR.
--- NOTE | 2018-08-24 15:10 | NUR ---
LINEN CHANGE SMALL BOWEL MOVEMENT PRESENT BUT STILL NO VOID. PATIENT CLEANED. FULL LINEN CHANGE PERFORMED. PATIENT TURNED ONTO RIGHT SIDE. PATIENT ENCOURAGED TO VOID AT THIS TIME, URINAL PLACED, NO VOID STILL. WILL CONTINUE TO MONITOR Q1H AND PRN.
[2018-08-24] MEDS ORDERED: SODIUM CHLORIDE 0.9% 1,000 ML IV SCH (15:15)
--- NOTE | 2018-08-24 15:48 | NUR ---
REPORT GIVEN REPORT GIVEN TO SHEN MUNSON. PATIENT HAS STILL YET TO VOID, POSSIBLE BLADDER SCAN AND DALE PLACEMENT ENDORSED. CARE ENDORSED.
--- NOTE | 2018-08-24 15:52 | NUR ---
Opening Shift Note Assumed care of patient, awake and alert x 2, with severe expressive aphasia. Patient is able to say 'Yes or no" answers. Bed is in lowest position and locked. Call light within reach. Board updated No S/S of distress/SOB or pain. Patient is able to activate his call light if needed. NS infusing at 50 mls/hr. Instructed on POC and to call for assist PRN, will continue to monitor for changes Q1hr and PRN.
[2018-08-24 18:23] VITALS: BP 140/94
--- NOTE | 2018-08-24 19:39 | NUR ---
Patient refusing to eat his dinner even with assistance.
--- NOTE | 2018-08-24 20:48 | NUR ---
Patient has voided a large amount of yellow, normal smelling urine. Bladder scan post-residual volume is 130mls in bladder. Patient cleaned and lined changed. Will continue to monitor.
[2018-08-24 21:45] VITALS: BP 140/91
[2018-08-24] MEDS: ATORVASTATIN 20 MG TAB PO SCH (21:53)
--- NOTE | 2018-08-25 00:12 | NUR ---
Patient has voided a second time with large amount of yellow normal smelling urine on chux. Will continue to monitor.
[2018-08-25 05:02] VITALS: BP 153/95
[2018-08-25] MEDS: InsuLIN REG 1unit/0.01ml Soln (100units/ml) SC SCH ×4 (06:00→23:43)
[2018-08-25] MEDS: ACCU-CHEK COMFORT CURVE STRIP VI SCH ×4 (06:13→23:44)
[2018-08-25] MEDS: PANTOPRAZOLE 40 MG TAB PO SCH (06:13)
[2018-08-25] MEDS: glipiZIDE 5 MG TAB PO SCH ×2 (06:13→17:39)
--- NOTE | 2018-08-25 07:25 | NUR ---
Morning note Report received and bedside handoff completed. Patient observed awake, alert, and without S/S of distress noted. Patient oriented to this RN and POC discussed. Patient only verbally responded yea to this RN. Will continue to monitor patient hourly and PRN as patient not fully able to communicate.
[2018-08-25 07:58] VITALS: BP 143/89
[2018-08-25] MEDS: ASPirin 81 mg TAB PO SCH (10:10)
[2018-08-25] MEDS: DOCUSATE SOD 100 MG CAP PO SCH ×2 (10:10→22:18)
[2018-08-25] MEDS: CITALOPRAM HYDROBR 20 MG TAB PO SCH (10:10)
[2018-08-25] MEDS: METOPROLOL TARTRATE 25 MG TAB PO SCH ×2 (10:11→22:19)
[2018-08-25] MEDS: FUROSEMIDE 40 MG TAB PO SCH (10:11)
[2018-08-25] MEDS: amLODIPine BESYLATE 5 MG TAB PO SCH (10:12)
[2018-08-25] MEDS: ENOXAPARIN SOD 40 MG/0.4 ML SYRINGE SC SCH (10:13)
[2018-08-25] MEDS: LISINOPRIL 20 MG TAB PO SCH (10:13)
[2018-08-25 13:00] VITALS: BP 146/98
--- NOTE | 2018-08-25 16:20 | NUR ---
assessment Patient is a 53 year old male who is alert and oriented. Prior to admission patient lived home with a friend and functioned independently. Patient informed me he is able to care for his own ADLs. Per patient he has no DME. Patient has no insurance. Patient has been assessed by Albino Siddiqui of [facility]. Patient will qualify for [employer]. I have provided patient with resources for , Dr. Richard, and [facility] urgent care for follow up visits. I have provided patient with a prescription card from community assistance program. Patient will need a wheelchair post discharge. I have spoken with patients son Malachi and Malachi will speak with Albino to see what patient will qualify for post discharge. Malachi will call me back regarding patients post discharge home arrangements. I informed patient he has a right to speak to a social sciences instructor regarding all care. I informed patient he has a right to participate in any and all discharge planning. Patient is aware of visiting hours on the hospital floor. I informed patient he has a right to privacy. Patient does not have a POA and advanced directive. I have offered patient information on POA and advanced directives. I informed the patient the advantages and benefits of having an Advanced Directive. Patient verbalized understanding and agreed to discharge plan. Addendum: 08/25/18 at [address] Amended: Links added.
[2018-08-25 17:34] VITALS: BP 137/90
--- NOTE | 2018-08-25 19:15 | NUR ---
Opening Shift Note Assumed care of patient, awake and alert x 2, with severe expressive aphasia. Patient is able to say 'Yes or no" answers. Bed is in lowest position and locked. Call light within reach. Board updated No S/S of distress/SOB or pain. Patient is able to activate his call light if needed. Instructed on POC and to call for assist PRN, will continue to monitor for changes Q1hr and PRN.
[2018-08-25 22:00] VITALS: BP 137/88
[2018-08-25] MEDS: ATORVASTATIN 20 MG TAB PO SCH (22:18)
[2018-08-26] VITALS (7 sets, daily range): BP systolic 138–150; BP diastolic 74–96
[2018-08-26] MEDS: InsuLIN REG 1unit/0.01ml Soln (100units/ml) SC SCH ×4 (06:00→22:52)
[2018-08-26] MEDS: PANTOPRAZOLE 40 MG TAB PO SCH (06:53)
[2018-08-26] MEDS: ACCU-CHEK COMFORT CURVE STRIP VI SCH ×4 (06:54→22:52)
[2018-08-26 07:28] LABS: Basophils # (auto) 0.1 uL; Eosinophils # (auto) 0.6 uL; Eosinophils % (auto) 6.9 % (0.0-7.0); Hematocrit 36.1 % (41.0-53.0); Hemoglobin 12.2 g/dL (13.5-17.5); Lymphocytes # (auto) 1.5 uL; Lymphocytes % (auto) 17.4 % (10.0-50.0); Mean Corpuscular Hgb Conc. 33.9 g/dL (32.0-36.0); Mean Corpuscular Volume 85.4 fL (80.0-100.0); Monocytes # (auto) 0.8 uL; Monocytes % (auto) 8.8 % (0.0-12.0); Neutrophils # (auto) 5.7 uL; Neutrophils % (auto) 65.9 % (37.0-80.0); Nucleated Red Blood Cells % 0.1 %; Platelet Count (auto) 335 10^3/uL (140-450); Red Blood Cells 4.22 10^6/uL (4.5-5.90); Red Cell Distribution Width 12.8 % (11.8-14.3); White Blood Cell 8.6 10^3/uL (4.4-10.8)
--- NOTE | 2018-08-26 07:30 | NUR ---
Morning note Report received and bedside handoff completed. Patient observed awake, alert, and without any S/S of distress noted. Patient reoriented to this RN and POC discussed. Patient verbalized only "yes" and "no" answers. Will continue to monitor patient hourly and PRN as there is an inability to communicate completely. Patient also reported tenderness in lower abdomen, will monitor and check post void residual to make sure patient is not retaining too much urine as previously was. Patient verbalized understanding by nodding in agreement.
[2018-08-26] MEDS: glipiZIDE 5 MG TAB PO SCH ×2 (07:38→17:50)
[2018-08-26 07:45] LABS: BUN/Creatinine Ratio 23.8; Potassium 4.2 mmol/L (3.5-5.1)
[2018-08-26 07:46] LABS: Calcium 8.1 mg/dL (8.5-10.1); Magnesium 2.1 mg/dL (1.6-2.6)
[2018-08-26] MEDS: ENOXAPARIN SOD 40 MG/0.4 ML SYRINGE SC SCH (10:31)
[2018-08-26] MEDS: LISINOPRIL 20 MG TAB PO SCH (10:32)
[2018-08-26] MEDS: METOPROLOL TARTRATE 25 MG TAB PO SCH ×2 (10:33→22:53)
[2018-08-26] MEDS: ASPirin 81 mg TAB PO SCH (10:33)
[2018-08-26] MEDS: CITALOPRAM HYDROBR 20 MG TAB PO SCH (10:33)
[2018-08-26] MEDS: DOCUSATE SOD 100 MG CAP PO SCH ×2 (10:33→22:53)
[2018-08-26] MEDS: FUROSEMIDE 40 MG TAB PO SCH (10:33)
[2018-08-26] MEDS: amLODIPine BESYLATE 5 MG TAB PO SCH (10:34)
[2018-08-26] MEDS: SODIUM CHLORIDE 0.9% 1,000 ML IV SCH (13:00)
[2018-08-26] MEDS ORDERED: HYDROcodone-ACET 5/325MG TAB PO PRN (13:00)
[2018-08-26] MEDS ORDERED: NIFEdipine ER 30 MG TAB PO ONE (13:00)
--- NOTE | 2018-08-26 20:00 | NUR ---
Opening Shift Note Assumed care of patient, awake. No S/S of distress/SOB, pain. Instructed on POC, will continue to monitor for changes Q1hr and PRN. Pt repositioned, linens changed. Side rails up x2, bed in lowest locked position. Continue care.
[2018-08-26] MEDS: ATORVASTATIN 20 MG TAB PO SCH (22:53)
[2018-08-27 05:40] VITALS: BP 156/98
[2018-08-27] MEDS: InsuLIN REG 1unit/0.01ml Soln (100units/ml) SC SCH ×4 (06:00→23:55)
[2018-08-27] MEDS: PANTOPRAZOLE 40 MG TAB PO SCH (06:02)
[2018-08-27] MEDS: ACCU-CHEK COMFORT CURVE STRIP VI SCH ×4 (06:02→23:55)
[2018-08-27] MEDS: glipiZIDE 5 MG TAB PO SCH ×2 (06:02→18:08)
--- NOTE | 2018-08-27 07:15 | NUR ---
Morning note Report received and bedside handoff completed. Patient observed resting in bed without any S/S of distress. Patient reoriented to this RN and POC, patient verbalized understanding with "yea" response. Patient handed call kramer to call if needing assistance.
[2018-08-27 07:21] LABS: BUN/Creatinine Ratio 23.3; Calcium 8.4 mg/dL (8.5-10.1); Potassium 4.3 mmol/L (3.5-5.1)
[2018-08-27 08:51] VITALS: BP 147/88
[2018-08-27] MEDS: SODIUM CHLORIDE 0.9% 1,000 ML IV SCH (09:00)
[2018-08-27] MEDS: ENOXAPARIN SOD 40 MG/0.4 ML SYRINGE SC SCH (10:21)
[2018-08-27] MEDS: CITALOPRAM HYDROBR 20 MG TAB PO SCH (10:21)
[2018-08-27] MEDS: DOCUSATE SOD 100 MG CAP PO SCH ×2 (10:21→22:08)
[2018-08-27] MEDS: FUROSEMIDE 40 MG TAB PO SCH (10:22)
[2018-08-27] MEDS: LISINOPRIL 20 MG TAB PO SCH (10:22)
[2018-08-27] MEDS: METOPROLOL TARTRATE 25 MG TAB PO SCH ×2 (10:23→22:08)
[2018-08-27] MEDS: NIFEdipine ER 30 MG TAB PO SCH (10:23)
[2018-08-27] MEDS: ASPirin 81 mg TAB PO SCH (10:23)
--- NOTE | 2018-08-27 11:12 | NUR ---
MD Kristian Dimas came to notify this RN that she rounded on patient. Discussed patient's lack of motivation to ambulate to chair with physical therapy yesterday and she requested this RN discuss with family if they come today. This RN has cared for patient for past three days and no family has come by. stated hopefully the wheelchair will be delivered this week.
[2018-08-27 13:00] VITALS: BP_SYST 101; BP_SYST 146; BP_DIAS 57; BP_DIAS 95
--- NOTE | 2018-08-27 13:48 | NUR ---
Family at bedside Son, Malachi at bedside with some other family members. Discussed physical therapy and patient's lack of motivation lately. Son agreed and requesting physical therapy come by while the family is there and available to encourage patient. Physical therapy called stated they would send someone.
--- NOTE | 2018-08-27 15:22 | NUR ---
IV changed IV in R FA discontinued due to not flushing, no swelling noted. New 22G IV placed in L FA without complications.
[2018-08-27 17:00] VITALS: BP 137/85
--- NOTE | 2018-08-27 19:40 | NUR ---
Opening Shift Note Assumed care of patient, awake, slurred speech, right sided weakness, cooperative to care. No S/S of distress/SOB or pain. Updated on POC, turned to side and every 2 hours, siderails up x2, bed alarm on, will continue to monitor
[2018-08-27 20:00] VITALS: BP 141/84
[2018-08-27] MEDS: ATORVASTATIN 20 MG TAB PO SCH (22:08)
[2018-08-27 22:34] VITALS: BP 141/84
[2018-08-28] MEDS: SODIUM CHLORIDE 0.9% 1,000 ML IV SCH (05:00)
[2018-08-28 05:42] VITALS: BP 134/84
[2018-08-28] MEDS: InsuLIN REG 1unit/0.01ml Soln (100units/ml) SC SCH ×3 (06:00→17:53)
[2018-08-28] MEDS: glipiZIDE 5 MG TAB PO SCH ×2 (06:17→17:52)
[2018-08-28] MEDS: ACCU-CHEK COMFORT CURVE STRIP VI SCH ×3 (06:17→17:53)
[2018-08-28] MEDS: PANTOPRAZOLE 40 MG TAB PO SCH (06:17)
--- NOTE | 2018-08-28 07:00 | NUR ---
Opening Shift Note Assumed care of patient, awake, alert, and oriented x4. No S/S of distress/SOB or pain. IV in left forearm, 22 gauge, asymptomatic, intact, patent, and infusing normal saline at mL/hour. Patient turned and repositioned on left side, and will turn and reposition Q2. Bed locked and in lowest position and call light is within reach. Instructed on POC and to call for assist PRN, and patient verbalized understanding. Will continue to monitor for changes Q1hr and PRN.
[2018-08-28 08:48] VITALS: BP 104/66
[2018-08-28] MEDS: LISINOPRIL 20 MG TAB PO SCH (10:00)
[2018-08-28] MEDS: METOPROLOL TARTRATE 25 MG TAB PO SCH ×2 (10:00→21:48)
[2018-08-28] MEDS: NIFEdipine ER 30 MG TAB PO SCH (10:00)
[2018-08-28] MEDS: ASPirin 81 mg TAB PO SCH (10:13)
[2018-08-28] MEDS: DOCUSATE SOD 100 MG CAP PO SCH ×2 (10:13→21:48)
[2018-08-28] MEDS: FUROSEMIDE 40 MG TAB PO SCH (10:14)
[2018-08-28] MEDS: CITALOPRAM HYDROBR 20 MG TAB PO SCH (10:14)
[2018-08-28] MEDS: ENOXAPARIN SOD 40 MG/0.4 ML SYRINGE SC SCH (10:14)
--- NOTE | 2018-08-28 10:30 | NUR ---
PATIENT REFUSED TO REPOSITION AND TURN IN BED. PATIENT ALSO REFUSED PT SERVICE, AND REFUSED TO GET UT OF BED.
--- NOTE | 2018-08-28 10:45 | NUR ---
WOUND CARE NOTE: WOUND CARE TEAM IS MONITORING PATIENT FOR SKIN INTEGRITY D/T LOW SHARLENE SCORES. CURRENT SHARLENE SCORE IS 13. HE CONTINUES TO REST ON AIR MATTRESS PREVENTATIVE INTERVENTION. HE CONTINUES TO BE WOUND FREE AT THIS TIME. UPDATED SKIN/WOUND CARE PLAN. RECOMMEND: CONTINUATION WITH ALL WOUND CARE ORDERS PREVIOUSLY PRESCRIBED BY MD. WOUND CARE TEAM WILL CONTINUE TO MONITOR.
--- NOTE | 2018-08-28 11:46 | NUR ---
Patient is not allowing me to turn him. i tried a few times each time patient is refusing. 08/28/2018 Digna Licea CNA
[2018-08-28 13:00] VITALS: BP 132/68
--- NOTE | 2018-08-28 14:23 | NUR ---
Nutrition Follow-up Notes Wt.: 90.8 kg based on be scale as of yesterday. Pt's aphasic, no immediate family member at bedside except for PT when rounded this morning. Pt's no signs of distress noted earlier, currently on Pureed Consistent Std. Carb: 60 gms/meal diet with fair PO intake aeb 68% ave. consumed meals (x5) in last 2.5 days /d/t pt refused, per nursing. Noted pt's for active Tele Psych consult. Est. Needs ABW [id number] kcal (23-25 kcal/kgBW), 65-82 gms pro (0.8-1.0 gms/kgBW d/t elev RFT CKD, severe hypoalbuminemia). Will continue to monitor pertinent labs and reassess nutrient need prn Labs: No new labs today except for POC Gluc 150 H; 08/27/18 Gluc 112 H, Na 134 L, BUN 38 H, Cr 1.63 H, Ca 8.4 L, HbA1c 10.4 H, Tpro 5.8 L, Alb 1.4 L Skin: Brennen scale 13, mod risk, skin intact per middleware architect. GI: Pt had 1 BM this morning per middleware architect. PES: Altered nutrition related lab values r/t current/chronic medical condition aeb elev RFT A1C, hyperglycemia, severe hypoalb, hypocalcemia Obesity r/t food intake more than body requirement aeb 144% IBW, BMI 33.6 kg/m2 and increased body adiposity Will continue to monitor PO intake, skin status, pertinent labs and weight trend. F/u in 3 to 5 days. Rec.: 1.) Continue close supervision during meals. 2.) If Albumin level continues trending down with improved renal labs, consider Prostat 1 pkt BID. 3.) If renal labs continue trending up, consider Pureed Renal Specific 80 gm protein, 2 gms Na, Cardiac: Low Fat, Low Chol in addition to current therapeutic diet. 4.) Refer pt to CDE/RD for further nutrition education and weight monitoring upon discharge. 5.) Continue current plan of care.
--- NOTE | 2018-08-28 15:18 | NUR ---
PATIENT REFUSED PT SERVICE Patient stated he did not want to get up today or move out of bed to chair with physical therapy.
[2018-08-28 17:08] VITALS: BP 132/83
--- NOTE | 2018-08-28 19:35 | NUR ---
Opening Shift Note Assumed care of patient, awake, can answer Yes or No to questions, but unable to state his name, right sided weakness, cooperative to care. No S/S of distress/SOB or pain. Incontinent to urine and stool. Turned to side and every 2 hours, siderails up x2, bed alarm on, call light within reach, will continue to monitor
[2018-08-28] MEDS: ATORVASTATIN 20 MG TAB PO SCH (21:48)
[2018-08-28 22:00] VITALS: BP 138/92
[2018-08-29] MEDS: ACCU-CHEK COMFORT CURVE STRIP VI SCH ×4 (00:10→17:39)
[2018-08-29] MEDS: SODIUM CHLORIDE 0.9% 1,000 ML IV SCH ×2 (01:30→21:00)
--- NOTE | 2018-08-29 03:15 | NUR ---
Advised patient to do tele psyche but patient mumbled "No". Explained the reason for it and still stated "No", will try to convince later
[2018-08-29 05:00] VITALS: BP 150/97
[2018-08-29 05:59] LABS: Potassium 4.2 mmol/L (3.5-5.1)
[2018-08-29] MEDS: InsuLIN REG 1unit/0.01ml Soln (100units/ml) SC SCH ×4 (06:00→17:39)
[2018-08-29 06:03] LABS: BUN/Creatinine Ratio 21.2
[2018-08-29] MEDS: glipiZIDE 5 MG TAB PO SCH ×2 (06:22→17:37)
[2018-08-29] MEDS: PANTOPRAZOLE 40 MG TAB PO SCH (06:22)
--- NOTE | 2018-08-29 07:15 | NUR ---
Opening Shift Note Assumed care of patient, awake, alert, and oriented x4. No S/S of distress/SOB or pain. IV in left forearm 22 gauge, asymptomatic, intact, patent, and infusing normal saline at 50 mL/hour. Bed locked and in lowest position and call light is within reach. Instructed on POC and to call for assist PRN, and patient verbalized understanding. Will continue to monitor for changes Q1hr and PRN.
[2018-08-29 08:57] VITALS: BP 144/91
[2018-08-29] MEDS: ASPirin 81 mg TAB PO SCH (09:59)
[2018-08-29] MEDS: CITALOPRAM HYDROBR 20 MG TAB PO SCH (09:59)
[2018-08-29] MEDS: DOCUSATE SOD 100 MG CAP PO SCH ×2 (09:59→22:26)
[2018-08-29] MEDS: ENOXAPARIN SOD 40 MG/0.4 ML SYRINGE SC SCH (09:59)
[2018-08-29] MEDS: LISINOPRIL 20 MG TAB PO SCH (10:00)
[2018-08-29] MEDS: NIFEdipine ER 30 MG TAB PO SCH (10:00)
[2018-08-29] MEDS: FUROSEMIDE 40 MG TAB PO SCH (10:00)
[2018-08-29] MEDS: METOPROLOL TARTRATE 25 MG TAB PO SCH ×2 (10:01→22:26)
--- NOTE | 2018-08-29 10:30 | NUR ---
DR. ROSARIO AT BEDSIDE.
[2018-08-29 13:00] VITALS: BP_SYST 136; BP_SYST 82; BP_DIAS 63; BP_DIAS 95
--- NOTE | 2018-08-29 13:30 | NUR ---
IV removal IV DC'd with sterile technique, catheter fully intact. Pressure dressing applied to site. Patient tolerated procedure well.
--- NOTE | 2018-08-29 14:00 | NUR ---
IV insertion IV access obtained, via clean sterile technique by inserting 22 gauge catheter on the LEFT FOREARM after 1 attempt. IV secured properly. No trauma to site. Patient tolerated procedure well.
[2018-08-29 17:00] VITALS: BP 120/78
--- NOTE | 2018-08-29 19:35 | NUR ---
Opening Shift Note Assumed care of patient, awake, can answer Yes or No to questions, but unable to state his name, right sided hemiparesis, cooperative to care. No S/S of distress/SOB or pain. Incontinent to urine and stool. Turned to side and every 2 hours, bed in lowest position, siderails up x2, bed alarm on, call light within reach, will continue to monitor
[2018-08-29 22:00] VITALS: BP 120/79
[2018-08-29] MEDS: ATORVASTATIN 20 MG TAB PO SCH (22:26)
[2018-08-30] MEDS: ACCU-CHEK COMFORT CURVE STRIP VI SCH ×4 (00:19→18:29)
[2018-08-30 05:00] VITALS: BP 126/86
[2018-08-30] MEDS: PANTOPRAZOLE 40 MG TAB PO SCH (05:43)
[2018-08-30] MEDS: InsuLIN REG 1unit/0.01ml Soln (100units/ml) SC SCH ×4 (06:00→18:00)
[2018-08-30] MEDS: glipiZIDE 5 MG TAB PO SCH ×3 (06:14→19:13)
[2018-08-30 08:00] VITALS: BP 113/75
--- NOTE | 2018-08-30 08:30 | NUR ---
BREAKFAST ASSISTED PT BY CHOPPING DOWN HIS FOOD IN A SMALL PIECES, PT WAS ABLE TO FEED HIMSELF, NO DISTRESS NOTED.
[2018-08-30 08:57] VITALS: BP 117/77
[2018-08-30] MEDS: ENOXAPARIN SOD 40 MG/0.4 ML SYRINGE SC SCH (09:06)
[2018-08-30] MEDS: DOCUSATE SOD 100 MG CAP PO SCH ×2 (09:06→21:40)
[2018-08-30] MEDS: LISINOPRIL 20 MG TAB PO SCH (09:07)
[2018-08-30] MEDS: METOPROLOL TARTRATE 25 MG TAB PO SCH ×2 (09:07→21:57)
[2018-08-30] MEDS: FUROSEMIDE 40 MG TAB PO SCH (09:07)
[2018-08-30] MEDS: CITALOPRAM HYDROBR 20 MG TAB PO SCH (09:07)
[2018-08-30] MEDS: ASPirin 81 mg TAB PO SCH (09:08)
[2018-08-30] MEDS: NIFEdipine ER 30 MG TAB PO SCH (09:08)
[2018-08-30] MEDS: HYDROcodone-ACET 5/325MG TAB PO PRN (09:30)
--- NOTE | 2018-08-30 09:30 | NUR ---
PHYSICAL THERAPY AT BED SIDE, ASSISTING PT TO SIT UP.
[2018-08-30] MEDS ORDERED: ONDANSETRON HCL 4 MG/2 ML VIAL IV PRN (09:45)
--- NOTE | 2018-08-30 11:00 | NUR ---
VOMITING PT VOMITED, ZOFRAN IV GIVEN TO PT
[2018-08-30 13:00] VITALS: BP 149/94
--- NOTE | 2018-08-30 14:05 | NUR ---
re-assessment I have called patients son Malachi and informed him that the MD's are getting close to discharging patient. Per Malachi he will work on where patient will go on discharge. [place] Malachi [place] and cannot take patient home with him. I informed Malachi I have ordered patient a wheelchair and will be donating wheelchair to patient. Addendum: 09/05/18 at [address] Amended: Links added.
--- NOTE | 2018-08-30 16:18 | NUR ---
SPEECH EVALUATED. PATIENT HAS GOOD RECEPTIVE LANGUAGE AND COMPREHENSION. PATIENT ABLE TO SAY "YES" AND "NO". PATIENT HAS SOME WORD FINDING DIFFICULTY. SPEECH OUTPUT IS DIFFICULT. PATIENT GIVEN COMMUNICATION BOARD IN [place] WITH VIETNAMESE TRANSLATIONS. VOICE IS SOFT, WEAK.
[2018-08-30 16:37] VITALS: BP 125/87
[2018-08-30] MEDS: SODIUM CHLORIDE 0.9% 1,000 ML IV SCH (17:00)
--- NOTE | 2018-08-30 17:00 | NUR ---
REPOSITION PT AT ALL TIMES, FROM SIDE TO SIDE, KEPT ALWAYS DRY AND CLEAN.
[2018-08-30] MEDS: ATORVASTATIN 20 MG TAB PO SCH (21:41)
[2018-08-31] MEDS: ACCU-CHEK COMFORT CURVE STRIP VI SCH ×4 (00:30→18:20)
[2018-08-31] MEDS: InsuLIN REG 1unit/0.01ml Soln (100units/ml) SC SCH ×4 (00:31→18:21)
[2018-08-31] MEDS: HYDROcodone-ACET 5/325MG TAB PO PRN (05:40)
[2018-08-31] MEDS: PANTOPRAZOLE 40 MG TAB PO SCH (05:41)
[2018-08-31 06:09] VITALS: BP 143/87
[2018-08-31 06:36] LABS: Basophils # (auto) 0.1 uL; Basophils % (auto) 1.1 % (0.0-2.0); Eosinophils # (auto) 0.9 uL; Hematocrit 37.6 % (41.0-53.0); Lymphocytes % (auto) 22.2 % (10.0-50.0); Mean Corpuscular Hemoglobin 30.1 pg (28.0-32.0); Mean Corpuscular Hgb Conc. 34.7 g/dL (32.0-36.0); Mean Corpuscular Volume 86.9 fL (80.0-100.0); Monocytes # (auto) 0.7 uL; Monocytes % (auto) 7.9 % (0.0-12.0); Neutrophils # (auto) 5.3 uL; Neutrophils % (auto) 58.8 % (37.0-80.0); Platelet Count (auto) 298 10^3/uL (140-450); Red Blood Cells 4.32 10^6/uL (4.5-5.90); Red Cell Distribution Width 13.3 % (11.8-14.3)
[2018-08-31] MEDS: glipiZIDE 5 MG TAB PO SCH ×2 (06:41→18:20)
[2018-08-31 06:51] LABS: Calcium 8.3 mg/dL (8.5-10.1); Potassium 3.9 mmol/L (3.5-5.1)
[2018-08-31 09:00] VITALS: BP 154/98
--- NOTE | 2018-08-31 09:00 | NUR ---
got report from aditya edwards to assume care of pt.
--- NOTE | 2018-08-31 09:30 | NUR ---
PT TOLERATED SITTING ON EDGE OF BED WITH LEG AND ARM EXERCISES.
--- NOTE | 2018-08-31 10:09 | NUR ---
physical therapy in room working with patient on side of bed doing exercises. Patient refused to get in chair with assistance of physical therapy and myself. Explained it would be good for patient to sit up for a bit. Patient refused again. ARPIT Villagran notified.
--- NOTE | 2018-08-31 10:30 | NUR ---
PT SEEN BY DR. WARD
[2018-08-31] MEDS: ENOXAPARIN SOD 40 MG/0.4 ML SYRINGE SC SCH (10:33)
[2018-08-31] MEDS: ASPirin 81 mg TAB PO SCH (10:34)
[2018-08-31] MEDS: CITALOPRAM HYDROBR 20 MG TAB PO SCH (10:34)
[2018-08-31] MEDS: FUROSEMIDE 40 MG TAB PO SCH (10:34)
[2018-08-31] MEDS: DOCUSATE SOD 100 MG CAP PO SCH ×2 (10:34→21:52)
[2018-08-31] MEDS: LISINOPRIL 20 MG TAB PO SCH (10:35)
[2018-08-31] MEDS: METOPROLOL TARTRATE 25 MG TAB PO SCH ×2 (10:35→21:52)
[2018-08-31] MEDS: NIFEdipine ER 30 MG TAB PO SCH (10:35)
--- NOTE | 2018-08-31 11:50 | NUR ---
TOOK PATIENTS AFTERNOON VITAL SIGNS, ASKED PATIENT IF I COULD TURN HIM ON HIS LEFT SIDE. PATIENT MICHAUD NO X2. EDUCATED PATIENT OF POSSIBLE BED SORES DUE TO NOT TURNING. PATIENT REFUSED AGAIN.
--- NOTE | 2018-08-31 12:30 | NUR ---
LUNCH TRAY PASSED TO PATIENT. ASKED PATIENT IF HE WANTED TO SIT UP AND EAT. PATIENT SAID NO. ASKED PATIENT IF HE WANTS ME TO COME BACK LATER AND HE SAID YES. WILL RE ROUND AT [id number]
[2018-08-31 13:00] VITALS: BP 149/96
--- NOTE | 2018-08-31 13:20 | NUR ---
ROUNDED ON PATIENT. ASKED HIM AGAIN IF HE WANTED TO SIT UP AND EAT. PATIENT ATE 25% OF TRAY AND DRANK ONE JUICE. PATIENT SHOOK HEAD AND I ASKED IF HE WANTED MORE HE SAID NO. ASKED PATIENT IF I COULD TURN HIM ON HIS SIDE HE SAID NO. WILL TRY TO TURN HIM AGAIN WHEN I CHANGE HIS SHEETS.
[2018-08-31 17:00] VITALS: BP 120/80
[2018-08-31] MEDS: SODIUM CHLORIDE 0.9% 1,000 ML IV SCH (18:22)
[2018-08-31 20:00] VITALS: BP 139/94
--- NOTE | 2018-08-31 20:09 | NUR ---
Opening Shift Note Received report from Sparkle MUNSON. Assumed care of patient, awake and alert but unable to communicate. No S/S of distress/SOB or pain. Instructed on POC and to call for assist PRN. Fall precaution measures in place, will continue to monitor for changes Q1hr and PRN.
[2018-08-31] MEDS: ATORVASTATIN 20 MG TAB PO SCH (21:53)
[2018-08-31 22:00] VITALS: BP 139/94
[2018-09-01] MEDS: ACCU-CHEK COMFORT CURVE STRIP VI SCH ×4 (00:16→18:07)
[2018-09-01 05:00] VITALS: BP 162/101
[2018-09-01] MEDS: cloNIDine HCL 0.1 MG TAB PO PRN (05:17)
--- NOTE | 2018-09-01 05:17 | NUR ---
Patient's BP is 162/101, Clonidine 0.1mg PO given. Repositioned patient for comfort. Will continue to monitor.
[2018-09-01] MEDS: PANTOPRAZOLE 40 MG TAB PO SCH (05:42)
[2018-09-01] MEDS: InsuLIN REG 1unit/0.01ml Soln (100units/ml) SC SCH ×4 (05:42→18:00)
[2018-09-01 06:12] LABS: Alanine Aminotransferase 22 U/L (16-61); Albumin 2.1 g/dL (3.4-5.0); Alkaline Phosphatase 86 U/L (45-117); Aspartate Aminotransferase 29 U/L (15-37); Bilirubin, Direct < 0.1 mg/dL (0-0.2); Bilirubin, Total 0.4 mg/dL (0.2-1.0); Total Protein 7.3 g/dL (6.4-8.2)
[2018-09-01] MEDS: glipiZIDE 5 MG TAB PO SCH ×2 (06:37→18:00)
--- NOTE | 2018-09-01 07:25 | NUR ---
Latest BP is 108/79, no sob/distress or pain. Endorsed care to Sparkle MUNSON.
--- NOTE | 2018-09-01 07:40 | NUR ---
Opening Shift Note Assumed care of patient, awake and alert, lying on bed. No S/S of distress/SOB or pain. Call light within reach, 2 side rails up and bed in lowest position. Instructed on POC and to call for assist PRN, will continue to monitor for changes Q1hr and PRN.
[2018-09-01 09:00] VITALS: BP 122/88
--- NOTE | 2018-09-01 09:20 | NUR ---
PT TOLERATED SITTING AT EDGE OF BED.
[2018-09-01] MEDS: ENOXAPARIN SOD 40 MG/0.4 ML SYRINGE SC SCH (09:53)
[2018-09-01] MEDS: LISINOPRIL 20 MG TAB PO SCH (09:56)
[2018-09-01] MEDS: NIFEdipine ER 30 MG TAB PO SCH (09:56)
[2018-09-01] MEDS: FUROSEMIDE 40 MG TAB PO SCH (09:57)
[2018-09-01] MEDS: DOCUSATE SOD 100 MG CAP PO SCH ×2 (09:57→22:06)
[2018-09-01] MEDS: METOPROLOL TARTRATE 25 MG TAB PO SCH ×2 (09:57→22:06)
[2018-09-01] MEDS: CITALOPRAM HYDROBR 20 MG TAB PO SCH (09:57)
[2018-09-01] MEDS: ASPirin 81 mg TAB PO SCH (09:57)
[2018-09-01] MEDS ORDERED: HYDROcodone-ACET 5/325MG TAB PO PRN (11:15)
--- NOTE | 2018-09-01 12:27 | NUR ---
I placed a call out to Dr. Cazares to discuss the plan of care for this patient.
[2018-09-01 13:22] VITALS: BP 141/99
--- NOTE | 2018-09-01 13:38 | NUR ---
Nutrition Follow-up Notes Wt.: 91.0 kg based on be scale as of yesterday. Pt's on oxygen via nasal cannula, asleep, aphasic, no immediate family member at bedside during rounds this morning. Pt's no signs of distress noted earlier, currently on Pureed Consistent Std. Carb: 60 gms/meal diet with fair PO intake aeb 60% ave. consumed meals (x7) in last 2.5 days. Est. Needs ABW [id number] kcal (23-25 kcal/kgBW), 65-82 gms pro (0.8-1.0 gms/kgBW d/t elev RFT CKD, severe hypoalbuminemia). Will continue to monitor pertinent labs and reassess nutrient need prn Labs: POC Gluc 131 H, Alb 2.1 L; 08/31/18 Na 135 L, BUN 31 H, Cr 1.55 H, Ca 8.3 L Skin: Brennen scale 14, mod risk, skin intact per diagnostics tech. GI: Pt had 1 BM this morning per diagnostics tech. PES: Altered nutrition related lab values r/t current/chronic medical condition aeb elev RFT A1C, hyperglycemia, severe hypoalb, hypocalcemia Obesity r/t food intake more than body requirement aeb 144% IBW, BMI 33.6 kg/m2 and increased body adiposity Will continue to monitor PO intake, skin status, pertinent labs and weight trend. F/u in 3 to 5 days. Rec.: 1.) Continue close supervision and feeding assistance prn during meals. 2.) If Albumin level continues trending down with improved renal labs, consider Prostat 1 pkt BID. 3.) If renal labs continue trending up, consider Pureed Renal Specific 80 gm protein, 2 gms Na, Cardiac: Low Fat, Low Chol in addition to current therapeutic diet. 4.) Refer pt to CDE/RD for further nutrition education and weight monitoring upon discharge. 5.) Continue current plan of care.
[2018-09-01] MEDS: SODIUM CHLORIDE 0.9% 1,000 ML IV SCH (14:10)
--- NOTE | 2018-09-01 16:00 | NUR ---
WHEELCHAIR PER NEIDA PURDY WHEELCHAIR WAS DELIVERED TO HER HOUSE TODAY AND WILL FIGURE OUT HOW TO BRING THE WHEELCHAIR AT BEDSIDE.
[2018-09-01 17:10] VITALS: BP 140/89
--- NOTE | 2018-09-01 19:15 | NUR ---
Opening Shift Note Received report from Sparkle MUNSON. Assumed care of patient, awake and alert. No S/S of distress/SOB or pain. Instructed on POC and to call for assist PRN. Fall precaution measures in place, will continue to monitor for changes Q1hr and PRN.
[2018-09-01 20:00] VITALS: BP 136/88
[2018-09-01 22:00] VITALS: BP 136/88
[2018-09-01] MEDS: ATORVASTATIN 20 MG TAB PO SCH (22:07)
[2018-09-02] MEDS: InsuLIN REG 1unit/0.01ml Soln (100units/ml) SC SCH ×4 (00:30→17:25)
[2018-09-02] MEDS: ACCU-CHEK COMFORT CURVE STRIP VI SCH ×4 (00:30→17:25)
[2018-09-02 05:00] VITALS: BP 149/95
[2018-09-02] MEDS: PANTOPRAZOLE 40 MG TAB PO SCH (06:13)
[2018-09-02] MEDS: glipiZIDE 5 MG TAB PO SCH ×2 (06:46→17:25)
--- NOTE | 2018-09-02 06:48 | NUR ---
Turned patient Q2H and repositioned for comfort. Skin remains intact, free of wound. Continue care.
[2018-09-02 06:58] LABS: BUN/Creatinine Ratio 20.6; Calcium 8.2 mg/dL (8.5-10.1); Potassium 3.8 mmol/L (3.5-5.1)
--- NOTE | 2018-09-02 07:30 | NUR ---
Care endorsed to Haritha MUNSON.
[2018-09-02] MEDS: SODIUM CHLORIDE 0.9% 1,000 ML IV SCH (07:50)
[2018-09-02 08:00] VITALS: BP 148/83
[2018-09-02 08:50] VITALS: BP 148/83
[2018-09-02] MEDS: LISINOPRIL 20 MG TAB PO SCH (10:34)
[2018-09-02] MEDS: ASPirin 81 mg TAB PO SCH (10:34)
[2018-09-02] MEDS: METOPROLOL TARTRATE 25 MG TAB PO SCH ×2 (10:34→23:02)
[2018-09-02] MEDS: CITALOPRAM HYDROBR 20 MG TAB PO SCH (10:35)
[2018-09-02] MEDS: NIFEdipine ER 30 MG TAB PO SCH (10:35)
[2018-09-02] MEDS: FUROSEMIDE 40 MG TAB PO SCH (10:35)
[2018-09-02] MEDS: ENOXAPARIN SOD 40 MG/0.4 ML SYRINGE SC SCH (10:36)
[2018-09-02] MEDS: DOCUSATE SOD 100 MG CAP PO SCH ×2 (12:26→23:02)
[2018-09-02 14:01] VITALS: BP 120/83
[2018-09-02 17:15] VITALS: BP 119/75
[2018-09-02 22:00] VITALS: BP 129/80
[2018-09-02] MEDS: ATORVASTATIN 20 MG TAB PO SCH (23:02)
[2018-09-03] MEDS: SODIUM CHLORIDE 0.9% 1,000 ML IV SCH ×2 (01:00→21:36)
[2018-09-03] MEDS: ACCU-CHEK COMFORT CURVE STRIP VI SCH ×4 (01:06→17:24)
[2018-09-03 04:37] VITALS: BP 130/89
[2018-09-03] MEDS: InsuLIN REG 1unit/0.01ml Soln (100units/ml) SC SCH ×4 (06:00→17:24)
[2018-09-03] MEDS: glipiZIDE 5 MG TAB PO SCH ×2 (06:48→17:24)
[2018-09-03] MEDS: PANTOPRAZOLE 40 MG TAB PO SCH (06:48)
[2018-09-03 08:00] VITALS: BP 122/81
[2018-09-03 09:00] VITALS: BP 122/81
[2018-09-03] MEDS: ENOXAPARIN SOD 40 MG/0.4 ML SYRINGE SC SCH (09:43)
[2018-09-03] MEDS: LISINOPRIL 20 MG TAB PO SCH (09:43)
[2018-09-03] MEDS: DOCUSATE SOD 100 MG CAP PO SCH ×2 (09:43→21:37)
[2018-09-03] MEDS: FUROSEMIDE 40 MG TAB PO SCH (09:43)
[2018-09-03] MEDS: CITALOPRAM HYDROBR 20 MG TAB PO SCH (09:43)
[2018-09-03] MEDS: METOPROLOL TARTRATE 25 MG TAB PO SCH ×2 (09:44→21:37)
[2018-09-03] MEDS: NIFEdipine ER 30 MG TAB PO SCH (09:44)
[2018-09-03] MEDS: ASPirin 81 mg TAB PO SCH (09:44)
[2018-09-03 13:00] VITALS: BP 111/74
[2018-09-03 16:57] VITALS: BP 110/70
--- NOTE | 2018-09-03 18:03 | NUR ---
PATIENT REFUSED Q 2 TURN, STEWARD/STEWARDESS SMOKE ROOM WAS ABLE TO TURN THREE TIMES AND PATIENT REFUSED THE REST.
--- NOTE | 2018-09-03 18:15 | NUR ---
PER DOUGH PANNER PATIENT HAS NOT VOIDED WILL CHECK PATIENT WITH THE BLADDER SCANNER.
--- NOTE | 2018-09-03 18:35 | NUR ---
CHECKED PATIENTS BLADDER WITH THE SCANNER AND 158ML RECORDED. WILL ENDORSE MONITORING TO THE [facility] NURSE. Addendum: 09/03/18 at 1853 by Haritha Walsh RN RN CHECKED PATIENTS BLADDER WITH THE SCANNER AND 158ML RECORDED. PATIENT HAS NO DISTENTION OR DISCOMFORT IN THE BLADDER AREA WT THIS TIME, WILL ENDORSE MONITORING TO THE [facility] NURSE.
--- NOTE | 2018-09-03 19:59 | NUR ---
INCONTINENT OF URINE FULL LINEN CHANGE PROVIDED TO PATIENT. PATIENT HAD MOD AMOUNT OF YELLOW URINE NOTED TO INCONTINENCE PAD. PATIENT CLEANED AND REPOSITIONED FOR COMFORT.
[2018-09-03] MEDS: ATORVASTATIN 20 MG TAB PO SCH (21:37)
[2018-09-03 21:45] VITALS: BP 122/87
[2018-09-04] MEDS: ACCU-CHEK COMFORT CURVE STRIP VI SCH ×5 (01:03→17:58)
[2018-09-04 04:38] VITALS: BP 124/75
[2018-09-04] MEDS: InsuLIN REG 1unit/0.01ml Soln (100units/ml) SC SCH ×5 (06:00→17:58)
[2018-09-04] MEDS: glipiZIDE 5 MG TAB PO SCH ×2 (06:34→17:58)
[2018-09-04] MEDS: PANTOPRAZOLE 40 MG TAB PO SCH ×2 (06:34→10:43)
--- NOTE | 2018-09-04 07:15 | NUR ---
Opening Shift Note Report received and assumed care of patient,asleep. No S/S of distress/SOB or pain.side rails up call light within reach,will continue to monitor for changes Q1hr and PRN.
--- NOTE | 2018-09-04 08:15 | NUR ---
Rechecked ,wake and alert. No S/S of distress/SOB or pain. Instructed on POC,nursing routines,side rails up call light within reach, patient reminded instructed to call for assistance and PRN,patient verbalized understanding.
[2018-09-04 08:57] VITALS: BP 112/77
--- NOTE | 2018-09-04 10:00 | NUR ---
FRIENDS VISITING AT BEDSIDE
[2018-09-04] MEDS: DOCUSATE SOD 100 MG CAP PO SCH ×2 (10:42→22:10)
[2018-09-04] MEDS: CITALOPRAM HYDROBR 20 MG TAB PO SCH (10:42)
[2018-09-04] MEDS: ENOXAPARIN SOD 40 MG/0.4 ML SYRINGE SC SCH (10:42)
[2018-09-04] MEDS: ASPirin 81 mg TAB PO SCH (10:43)
[2018-09-04] MEDS: FUROSEMIDE 40 MG TAB PO SCH (10:43)
--- NOTE | 2018-09-04 10:45 | NUR ---
WOUND CARE NOTE: IN TO ASSESS PATIENT'S SKIN AT THIS TIME. HE HAS CURRENT SHARLENE SCORE OF 12. PATIENT HAS HEMIPLEGIA TO RIGHT SIDE. HE IS ABLE TO SELF TURN TO THE RIGHT SIDE, AND TURN WITH ASSISTANCE TO THE LEFT. SKIN REMAINS PINK, BLANCHABLE TO BONY PROMINENCES. NO WOUNDS NOTED. RECOMMEND: CONTINUATION WITH ALL WOUND CARE ORDERS PREVIOUSLY PRESCRIBED BY MD. WOUND CARE TEAM WILL CONTINUE TO MONITOR.
[2018-09-04] MEDS: METOPROLOL TARTRATE 25 MG TAB PO SCH ×2 (10:46→22:12)
[2018-09-04] MEDS: LISINOPRIL 20 MG TAB PO SCH (10:47)
[2018-09-04] MEDS: NIFEdipine ER 30 MG TAB PO SCH (10:48)
--- NOTE | 2018-09-04 11:47 | NUR ---
Nutrition Follow-up Notes Wt.: 86.3 kg Pt's on oxygen via nasal cannula, asleep, aphasic, no immediate family member at bedside during rounds this morning. Pt's no signs of distress noted earlier major CVA, currently on Pureed diet with fair PO OF AVG 60% X 5 per RN doc Est. Needs ABW [id number] kcal (23-25 kcal/kgBW), 65-82 gms pro (0.8-1.0 gms/kgBW d/t elev RFT CKD, severe hypoalbuminemia). Will continue to monitor pertinent labs and reassess nutrient need prn Labs: No new albs today 09/02: BUN 29 H, CREAT 1.41 H, CA 8.2 L, ALB 2.1 L, GLU 112 H Skin: Brennen scale 12, high risk, skin intact per applied psychology professor. GI: Pt had 1 BM on 09/01 per applied psychology professor. PES: Altered nutrition related lab values r/t current/chronic medical condition aeb elev RFT A1C, hyperglycemia, severe hypoalb, hypocalcemia Obesity r/t food intake more than body requirement aeb 144% IBW, BMI 33.6 kg/m2 and increased body adiposity Will continue to monitor PO intake, skin status, pertinent labs and weight trend. F/u in 3 to 5 days. Rec.: 1.) Consider CCHO 60 gm along with current diet. 2) Continue close supervision and feeding assistance prn during meals. 2.) If Albumin level continues trending down with improved renal labs, consider Prostat 1 pkt BID. 3.) If renal labs continue trending up, consider Pureed Renal Specific 80 gm protein, 2 gms Na, Cardiac: Low Fat, Low Chol in addition to current therapeutic diet. 4.) Refer pt to CDE/RD for further nutrition education and weight monitoring upon discharge. 5.) Continue current plan of care.
[2018-09-04] MEDS ORDERED: HYDROcodone-ACET 5/325MG TAB PO PRN (12:00)
[2018-09-04] MEDS ORDERED: ACETAMINOPHEN 325 MG TAB PO PRN (12:00)
[2018-09-04] MEDS ORDERED: DEXTROSE (50%) 50ML SYRG IV PRN (12:00)
--- NOTE | 2018-09-04 12:00 | NUR ---
MD VISIT DR. NEIL HERE TO SEE AND EXAMINED PATIENT RECEIVED ORDERS
[2018-09-04] MEDS ORDERED: PANTOPRAZOLE 40 MG TAB PO ONE (12:15)
[2018-09-04] MEDS ORDERED: ENOXAPARIN SOD 40 MG/0.4 ML SYRINGE SC ONE (12:15)
[2018-09-04 13:08] VITALS: BP 122/77
[2018-09-04 17:15] VITALS: BP 130/82
--- NOTE | 2018-09-04 19:21 | NUR ---
REPORT GIVEN TO JAC RESENDEZ RN FOR CONTINUATION OF CARE.
[2018-09-04 20:00] VITALS: BP 118/84
[2018-09-04 21:37] VITALS: BP 118/84
[2018-09-04] MEDS: ATORVASTATIN 20 MG TAB PO SCH (22:10)
[2018-09-05] MEDS: ACCU-CHEK COMFORT CURVE STRIP VI SCH ×3 (00:36→13:10)
[2018-09-05 05:30] VITALS: BP 140/91
[2018-09-05] MEDS ORDERED: PANTOPRAZOLE 40 MG TAB PO SCH (06:00)
[2018-09-05] MEDS: InsuLIN REG 1unit/0.01ml Soln (100units/ml) SC SCH ×3 (06:00→13:12)
[2018-09-05] MEDS: glipiZIDE 5 MG TAB PO SCH (06:41)
[2018-09-05 09:00] VITALS: BP 121/80
--- NOTE | 2018-09-05 09:27 | NUR ---
re-assessment I have called patients son Malachi and informed him that the MD is going to discharge patient today or tomorrow. Per Malachi he will call patient sister and see if she can help patient on discharge. I also informed Malachi that the wheelchair that will be donated to patient is here. Malachi informed me that he was hoping patient could stay here until his insurance is active. I reminded Malachi that I gave him notice of possible discharge last week. Malachi said he will call patients sister and then hung up on me. Addendum: 09/05/18 at [address] Amended: Links added.
[2018-09-05] MEDS: ASPirin 81 mg TAB PO SCH (09:43)
[2018-09-05] MEDS: METOPROLOL TARTRATE 25 MG TAB PO SCH (09:44)
[2018-09-05] MEDS: FUROSEMIDE 40 MG TAB PO SCH (09:44)
[2018-09-05] MEDS: DOCUSATE SOD 100 MG CAP PO SCH (09:45)
[2018-09-05] MEDS: LISINOPRIL 20 MG TAB PO SCH (09:45)
[2018-09-05] MEDS: CITALOPRAM HYDROBR 20 MG TAB PO SCH (09:45)
[2018-09-05] MEDS ORDERED: ENOXAPARIN SOD 40 MG/0.4 ML SYRINGE SC SCH (10:00)
--- NOTE | 2018-09-05 10:00 | NUR ---
PHYSICAL THERAPY AT BEDSIDE RANGE OF MOTION EXERCISES DONE.
[2018-09-05] MEDS ORDERED: MET25T PO (11:28)
[2018-09-05] MEDS ORDERED: LISI-646 PO (11:28)
[2018-09-05] MEDS ORDERED: ASPI81CH43 PO (11:28)
[2018-09-05] MEDS ORDERED: ATOR20TA50 PO (11:28)
[2018-09-05] MEDS ORDERED: GLIP-115 PO (11:28)
[2018-09-05] MEDS ORDERED: FURO40TA4 PO (11:28)
[2018-09-05] MEDS ORDERED: PANT40T PO (11:28)
[2018-09-05] MEDS ORDERED: CITA-77 PO (11:28)
[2018-09-05 13:00] VITALS: BP 114/72
--- NOTE | 2018-09-05 15:30 | NUR ---
Son Malachi here to [employer] spot pick[employer] dad for discharged,wheelchair provided by the hospital given to son by [facility] social economist.
--- NOTE | 2018-09-05 16:00 | NUR ---
Discharge instructions given as ordered. Encourage to follow up with PMD as instructed. All questions and concerns addressed. mirian Ly verbalized understanding. Medication reconciliation form completed and copy given to patient. IV removed with catheter intact, pressure dressing applied, Telemetry unit returned to [facility].
--- NOTE | 2018-09-05 16:30 | NUR ---
Patient taken to vehicle via wheelchair with all personal belongings, accompanied by 2 [employer]staff and family member. No distress noted at time of departure.
== END 2018-09-05 16:30 | disposition home or self-care (01) | DRG 871 ==
LOC: ER 17:58 → TELE 17:59 → TELE-CENTR 08-12 15:52
PROVIDERS: ADMIT Nurse Practitioner; ATTEND Internal Medicine
DX: A41.9 Sepsis, unspecified organism (principal); I50.23 Acute on chronic systolic (congestive) heart failure; J69.0 Pneumonitis due to inhalation of food and vomit; G93.41 Metabolic encephalopathy; J96.00 Acute respiratory failure, unspecified whether with hypoxia or hypercapnia; N17.0 Acute kidney failure with tubular necrosis; I63.9 Cerebral infarction, unspecified; G82.50 Quadriplegia, unspecified; I13.0 Hypertensive heart and chronic kidney disease with heart failure and stage 1 through stage 4 chronic kidney disease, or unspecified chronic kidney disease; I42.0 Dilated cardiomyopathy; R47.01 Aphasia; N18.3 Chronic kidney disease, stage 3 (moderate); E11.22 Type 2 diabetes mellitus with diabetic chronic kidney disease; E11.21 Type 2 diabetes mellitus with diabetic nephropathy; E66.9 Obesity, unspecified; E78.5 Hyperlipidemia, unspecified; E86.0 Dehydration; E87.6 Hypokalemia; R47.1 Dysarthria and anarthria; I08.0 Rheumatic disorders of both mitral and aortic valves; G93.89 Other specified disorders of brain; I67.2 Cerebral atherosclerosis; Z68.30 Body mass index [BMI] 30.0-30.9, adult; Z79.84 Long term (current) use of oral hypoglycemic drugs; Z79.899 Other long term (current) drug therapy
CPT/HCPCS: 36415; 36600; 70450; 70551; 71045; 76775; 80048; 80053; 80061; 80076; 80307; 80320; 80329; 81001; 82140; 82570; 82805; 82962; 83036; 83605; 83735; 83935; 84132; 84133; 84156; 84300; 85025; 85610; 87081; 87086; 92507; 92610; 93005; 93306; 93312; 93886; 94761; 96361; 96365; 96372; 97110; 97163; 97530; 99152; 99291; G0378; J1815; J1956; J2250; J2405; J3480; J3490; Q9967